=== PATIENT | female | born 1960 | race Two or more races ===

== ENCOUNTER 2020-05-14 16:20 | Outpatient (REF) | payer OTHER, SELFPAY | END 2020-05-14 16:21 | disposition home or self-care (01) | LOC: HO.LAB 16:20 | PROVIDERS: Visit Provider Internal Medicine | DX: Z20.828 Contact with and (suspected) exposure to other viral communicable diseases (principal) | CPT/HCPCS: U0003 ==

== ENCOUNTER → 2020-09-10 14:35 | Outpatient (BNVA) | payer OTHER, SELFPAY | PROVIDERS: PCP Internal Medicine; Visit Provider Advanced Practice Midwife ==

== ENCOUNTER 2020-09-11 13:20 | Outpatient (REF) | payer OTHER, SELFPAY ==
[2020-09-12 09:10] LABS: BV Int Neg Control Negative (Negative); BV Int Pos Control Positive (Positive)
== END 2020-09-11 13:21 | disposition home or self-care (01) ==
LOC: HO.LAB 13:20
PROVIDERS: Visit Provider Advanced Practice Midwife
DX: N89.8 Other specified noninflammatory disorders of vagina (principal)
CPT/HCPCS: 87480; 87510; 87660

== ENCOUNTER 2020-09-22 22:55 | Emergency (ER) | payer OTHER, SELFPAY ==
--- NOTE | ~2020-09-22 | CT_ITS ---
EXAMINATION: CT HEAD WITHOUT CONTRAST CLINICAL INFORMATION: Left arm paresthesia COMPARISON: 07/05/2018 TECHNIQUE: Contiguous axial imaging was performed from the skull base to vertex without intravenous administration of contrast. This CT examination was performed using dose optimization techniques as appropriate, variously including the following: *Automated exposure control *Adjustment of mA and/or kV according to patient size (this includes techniques or standardized protocols for targeted exams where dose is matched to indication/reason for exam; i.e. extremities or head) *Use of iterative reconstruction technique DLP: 648 mGy-cm FINDINGS: There is no evidence of acute intracranial hemorrhage or territorial infarction. No abnormal mass effect or midline shift is seen. Soliz to white matter differentiation is well preserved. No extra-axial fluid collections are identified. The ventricles are normal in size. There is no abnormal attenuation within the brain parenchyma. The osseous structures and soft tissues are normal. There is slight opacification of the left sphenoid sinus. The mastoid air cells are well-aerated. CT/CT head/brain wo con IMPRESSION: No acute intracranial pathology.
[2020-09-22 23:05] VITALS: BP 136/68; PULSE 68; RESP 20; TEMP 36.7; O2SAT 97; BMI 42.6
--- NOTE | 2020-09-23 00:36 | ED.GENADULT ---
HPI - General Adult General Chief complaint: General Medical <Marcus Ambrosio MD - Last Filed: 09/23/20 01:35> Stated complaint: Left arm numbness/Vomitng <Marcus Ambrosio MD - Last Filed: 09/23/20 01:35> Time Seen by Provider: 09/23/20 00:34 <Marcus Ambrosio MD - Last Filed: 09/23/20 01:35> Source: patient <Marcus Ambrosio MD - Last Filed: 09/23/20 01:35> Mode of arrival: ambulatory <Marcus Ambrosio MD - Last Filed: 09/23/20 01:35> Limitations: no limitations <Marcus Ambrosio MD - Last Filed: 09/23/20 01:35> History of Present Illness HPI narrative: Patient with history of anxiety depression asthma sleep apnea not using CPAP woke up just prior to arrival with left arm pain and tingling which lasted for an hour. Patient denies any chest pain no shortness of breath no headache no other motor weakness or numbness on arrival patient denies any tingling feeling. Patient denies any neck pain never had similar complaints in the past <Marcus Ambrosio MD - Last Filed: 09/23/20 01:35> Onset (ago): hour(s) (1) <Marcus Ambrosio MD - Last Filed: 09/23/20 01:35> Related Data Home medications: Home Medications Medication Instructions Recorded Confirmed lorazepam 0.5 mg tablet 0.5 mg PO DAILY PRN 07/12/20 09/10/20 pantoprazole 40 mg tablet,delayed 40 mg PO DAILY 07/12/20 09/10/20 release Previous Rx's Medication Instructions Recorded tramadol 50 mg tablet 50 mg PO BID PRN #60 tab 07/20/20 <Marcus Ambrosio MD - Last Filed: 09/23/20 01:35> Allergies/adverse reactions: Allergies Allergy/AdvReac Type Severity Reaction Status Date / Time No Known Allergies Allergy Verified 09/10/20 15:59 <Marcus Amborsio MD - Last Filed: 09/23/20 01:35> Review of Systems Review of Systems: Constitutional : No Weight loss, No Fever, No Chills ENT/Mouth : No sore throat, No Rhinorrhea Eyes: No Eye Pain, No Swelling Cardiovascular : No Chest Pain, no palpitations Respiratory : No Cough, No Sputum, no shortness of breath Gastrointestinal : no Nausea, No Vomiting, No Diarrhea, No abdominal Pain, no black stools Genitourinary : No Dysuria, No Urinary Frequency Musculoskeletal : No joint pain, No Myalgias, No Joint Swelling Skin : No Skin Lesions, No rash Neuro : No Weakness, + Numbness, No Dizziness, No Headache Psych : No Anxiety/Panic, No Depression Heme/Lymph: No Bruising, No Lymphadenopathy Endocrine : No Polyuria, No Polydipsia All other systems reviewed and are negative <Marcus Ambrosio MD - Last Filed: 09/23/20 01:35> [facility] Past Medical History Medical History: Medical History Allergic rhinitis Anxiety and depression Asthma Fibroids GERD (gastroesophageal reflux disease) History of renal calculi Hypercholesterolemia Obesity Obstructive sleep apnea Osteoarthritis Vitamin D deficiency <Marcus Ambrosio MD - Last Filed: 09/23/20 01:35> Surgical History: Surgical History H/O right knee surgery History of section History of tubal ligation <Marcus Ambrosio MD - Last Filed: 09/23/20 01:35> Family History Family History: Family History Father Cancer of kidney Hypertension Diabetes Mother Diabetes Sister Cancer of nasal cavities Sister Substance abuse Bipolar 1 disorder <Marcus Ambrosio MD - Last Filed: 09/23/20 01:35> Social History Social History: Social History Alcohol intake: former Smoking Status: Former smoker Advance Directives: No Advance Directives Information Provided: Yes <Marcus Ambrosio MD - Last Filed: 09/23/20 01:35> Physical Exam Vital Signs: Vital Signs: Last Vital Signs Temp 98.1 F 09/22/20 23:05 Pulse 68 09/22/20 23:05 Resp 20 09/22/20 23:05 BP 136/68 09/22/20 23:05 Pulse Ox 97 09/22/20 23:05 Body Mass Index 42.6 <Marcus Ambrosio MD - Last Filed: 09/23/20 01:35> Vital Signs: Last Vital Signs Temp 98.1 F 09/22/20 23:05 Pulse 68 09/22/20 23:05 Resp 20 09/22/20 23:05 BP 136/68 09/22/20 23:05 Pulse Ox 97 09/22/20 23:05 Body Mass Index 42.6 <Jannet Le MD - Last Filed: 09/23/20 03:15> Appearance: Alert. Oriented X3. No acute distress. Eyes: Pupils equal, round and reactive to light. ENT: Pharynx normal. Neck: Normal inspection. Neck supple. No midline tenderness CVS: Normal heart rate and rhythm. Pulses normal. Respiratory: No respiratory distress. Breath sounds normal. Abdomen: Soft and nontender. Bowel sounds are present, no mass palpable, no CVA tenderness Skin: Skin warm and dry. Normal skin color. Normal skin turgor. Extremities: No lower extremity edema. Neuro: Oriented X 3. No motor deficit. No sensory deficit. Tinel sign negative <Marcus Ambrosio MD - Last Filed: 09/23/20 01:35> Course Course Course Narrative: Patient re-evaluated and states that numbness in left upper extremity has almost completely resolved and otherwise has no acute complaints. Patient was discharged in stable condition. <Jannet Le MD - Last Filed: 09/23/20 03:15> Medical Decision Making MDM Narrative Medical decision making narrative: Patient with L Arm paresthesia likely from pinch nerve while sleeping at this time there is no focal deficit head CT is negative EKG is normal patient denies any chest pain will check labs <Marcus Ambrosio MD - Last Filed: 09/23/20 01:35> Lab Data Result diagrams: : 09/23/20 01:05 09/23/20 01:05 <Marcus Ambrosio MD - Last Filed: 09/23/20 01:35> Labs: Lab Results 09/23/20 09/23/20 09/23/20 Range/Units 01:05 01:05 01:05 WBC 9.5 (4.8-10.8) X10*3/uL RBC 4.09 L (4.20-5.50) X10*6/uL Hgb 12.2 (12.0-16.0) g/dl Hct 38.2 (37-47) % MCV 93.4 (80-98) fL MCH 29.8 (27.0-33.0) pg MCHC 31.9 (31.0-35.0) g/dl RDW 13.5 (11.0-16.0) % Plt Count 275 (160-400) X10*3/uL MPV 9.3 L (9.4-12.3) fL Immature Gran % (Auto) 0.2 (0.0-0.4) % Neut % (Auto) 77.1 H (45-73) % Lymph % (Auto) 13.8 L (20-40) % [place] % (Auto) 7.7 (2-11) % Eos % (Auto) 1.1 (0-4) % Baso % (Auto) 0.1 (0-2) % Lymph # (Auto) 1.3 (1.2-4.9) X10*3/uL [place] # (Auto) 0.7 (0.1-1.2) X10*3/uL Eos # (Auto) 0.1 (0.0-0.4) X10*3/uL Baso # (Auto) 0.0 (0.0-0.2) X10*3/uL Abs Immat Gran (auto) 0.02 (0.00-0.03) X10*3/uL Absolute Neuts (auto) 7.4 (2.0-8.3) X10*3/uL Absolute Nucleated RBC 0.000 (0.0-0.012) X10*3/uL Nucleated RBC % (auto) 0.0 (0.0-0.2) /100WBC Sodium 142 (135-145) mmol/L Potassium 4.3 (3.3-5.1) mmol/L Chloride 107 (96-108) mmol/L Carbon Dioxide 28 (22-29) mmol/L Anion Gap 11 L (12-20) BUN 22 H (9-16) mg/dL Creatinine 0.78 (0.5-1.4) mg/dL Estim Creat Clear Calc 79.6 Estimated GFR > 60 Random Glucose 115 (60-115) mg/dL Calcium 8.9 (8.4-10.2) mg/dL Magnesium 2.2 (1.6-2.6) mg/dL Troponin I High Sens < 3.5 (<3.5-17.0) ng/L <Marcus Ambrosio MD - Last Filed: 09/23/20 01:35> Lab Results 09/23/20 09/23/20 09/23/20 Range/Units 01:05 01:05 01:05 WBC 9.5 (4.8-10.8) X10*3/uL RBC 4.09 L (4.20-5.50) X10*6/uL Hgb 12.2 (12.0-16.0) g/dl Hct 38.2 (37-47) % MCV 93.4 (80-98) fL MCH 29.8 (27.0-33.0) pg MCHC 31.9 (31.0-35.0) g/dl RDW 13.5 (11.0-16.0) % Plt Count 275 (160-400) X10*3/uL MPV 9.3 L (9.4-12.3) fL Immature Gran % (Auto) 0.2 (0.0-0.4) % Neut % (Auto) 77.1 H (45-73) % Lymph % (Auto) 13.8 L (20-40) % [place] % (Auto) 7.7 (2-11) % Eos % (Auto) 1.1 (0-4) % Baso % (Auto) 0.1 (0-2) % Lymph # (Auto) 1.3 (1.2-4.9) X10*3/uL [place] # (Auto) 0.7 (0.1-1.2) X10*3/uL Eos # (Auto) 0.1 (0.0-0.4) X10*3/uL Baso # (Auto) 0.0 (0.0-0.2) X10*3/uL Abs Immat Gran (auto) 0.02 (0.00-0.03) X10*3/uL Absolute Neuts (auto) 7.4 (2.0-8.3) X10*3/uL Absolute Nucleated RBC 0.000 (0.0-0.012) X10*3/uL Nucleated RBC % (auto) 0.0 (0.0-0.2) /100WBC Sodium 142 (135-145) mmol/L Potassium 4.3 (3.3-5.1) mmol/L Chloride 107 (96-108) mmol/L Carbon Dioxide 28 (22-29) mmol/L Anion Gap 11 L (12-20) BUN 22 H (9-16) mg/dL Creatinine 0.78 (0.5-1.4) mg/dL Estim Creat Clear Calc 79.6 Estimated GFR > 60 Random Glucose 115 (60-115) mg/dL Calcium 8.9 (8.4-10.2) mg/dL Magnesium 2.2 (1.6-2.6) mg/dL Troponin I High Sens < 3.5 (<3.5-17.0) ng/L <Jannet Le MD - Last Filed: 09/23/20 03:15> Imaging Data CT scan - head: Attestation: I personally reviewed and interpreted this imaging study as follows: <Marcus Ambrosio MD - Last Filed: 09/23/20 01:35> Radiologist's impression: No acute ischemia <Marcus Ambrosio MD - Last Filed: 09/23/20 01:35> ECG Data Attestation: I personally reviewed and interpreted this ECG as follows: <Marcus Ambrosio MD - Last Filed: 09/23/20 01:35> Interpretation: Normal sinus rhythm heart rate 65 beats per minute normal axis normal intervals no acute ST T wave changes impression normal EKG <Marcus Ambrosio MD - Last Filed: 09/23/20 01:35> Discharge Plan Discharge Clinical Impression: Paresthesia and pain of left extremity <Marcus Ambrosio MD - Last Filed: 09/23/20 01:35> Patient Disposition: Home, Self-Care <Marcus Ambrosio MD - Last Filed: 09/23/20 01:35> Instructions: Paresthesia (ED) <Marcus Ambrosio MD - Last Filed: 09/23/20 01:35> Additional Instructions: Continue medications and follow up with your PCP if any left arm pain or chest pain <Marcus Ambrosio MD - Last Filed: 09/23/20 01:35> Prescriptions: No Action tramadol 50 mg tablet 50 mg PO BID PRN (Reason: pain) Qty: 60 RF: 1 pantoprazole [Protonix] 40 mg tablet,delayed release (DR/EC) 40 mg PO DAILY RF: 0 lorazepam [Ativan] 0.5 mg tablet 0.5 mg PO DAILY PRNRF: 0 <Marcus Ambrosio MD - Last Filed: 09/23/20 01:35>
--- NOTE | 2020-09-23 00:40 | ECG_ITS ---
Test Reason : NUMBNESS Blood Pressure : / mmHG Vent. Rate : 065 BPM Atrial Rate : 065 BPM P-R Int : 132 ms QRS Dur : 078 ms QT Int : 410 ms P-R-T Axes : 046 002 007 degrees QTc Int : 426 ms Normal sinus rhythm Normal ECG When compared with ECG of 05-JUL-2018 11:46, No significant change was found Referred By: Marcus Ambrosio Electronically Signed By:Remigio Julien
[2020-09-23 01:11] LABS: Basophils Percent Auto 0.1 % (0-2); Eosinophils Absolute Auto 0.1 X10*3/uL (0.0-0.4); Eosinophils Percent Auto 1.1 % (0-4); Hematocrit 38.2 % (37-47); Hemoglobin 12.2 g/dl (12.0-16.0); Imm Gran Abs Auto 0.02 X10*3/uL (0.00-0.03); Imm Gran Pct Auto 0.2 % (0.0-0.4); Lymphocytes Absolute Auto 1.3 X10*3/uL (1.2-4.9); Lymphocytes Percent Auto 13.8 % (20-40); MANUAL DIFF FLAG NO; Mean Corpuscular HGB Conc 31.9 g/dl (31.0-35.0); Mean Corpuscular Hemoglobin 29.8 pg (27.0-33.0); Mean Corpuscular Volume 93.4 fL (80-98); Mean Platelet Volume 9.3 fL (9.4-12.3); Monocytes Absolute Auto 0.7 X10*3/uL (0.1-1.2); Monocytes Percent Auto 7.7 % (2-11); Neutrophils Absolute Auto 7.4 X10*3/uL (2.0-8.3); Neutrophils Percent Auto 77.1 % (45-73); Platelet Count 275 X10*3/uL (160-400); Red Blood Count 4.09 X10*6/uL (4.20-5.50); Red Cell Distribution Width 13.5 % (11.0-16.0); White Blood Count 9.5 X10*3/uL (4.8-10.8)
[2020-09-23 01:41] LABS: Anion Gap 11 (12-20); Blood Urea Nitrogen 22 mg/dL (9-16); Calcium 8.9 mg/dL (8.4-10.2); Carbon Dioxide 28 mmol/L (22-29); Chloride 107 mmol/L (96-108); Creatinine Clr Calc Pharmacy 79.6; Estimated Glomerular Filt Rate > 60; Glucose Random 115 mg/dL (60-115); Magnesium 2.2 mg/dL (1.6-2.6); Potassium 4.3 mmol/L (3.3-5.1); Sodium 142 mmol/L (135-145)
[2020-09-23 01:45] LABS: Troponin-I High Sensitivity < 3.5 ng/L (<3.5-17.0)
== END 2020-09-23 03:29 | disposition home or self-care (01) ==
PROVIDERS: Emergency Provider Internal Medicine; PCP Internal Medicine
DX: M79.602 Pain in left arm (principal); R20.2 Paresthesia of skin; J45.909 Unspecified asthma, uncomplicated; Z79.899 Other long term (current) drug therapy; Z87.891 Personal history of nicotine dependence
CPT/HCPCS: 36415; 70450; 80048; 83735; 84484; 85025; 93005; 99284

== ENCOUNTER 2021-02-22 22:41 | Emergency (ER) | payer OTHER, SELFPAY ==
[2021-02-22 22:52] VITALS: BP 144/75; PULSE 82; RESP 18; TEMP 36.7; O2SAT 98; BMI 43.0
[2021-02-22 23:19] LABS: Glucose Urine UA NEG (NEG); Leukocyte Esterase Urine NEG (NEG); Nitrite Urine NEG (NEG); Specific Gravity - Urine 1.015 (1.005-1.025); UACC Culture Trigger NO; Urine Blood 3+ (NEG); Urine Ketones NEG (NEG); Urine Protein NEG (NEG-TRACE)
[2021-02-22 23:21] LABS: Appearance Urine CLEAR; Color Urine STRAW
[2021-02-22 23:39] LABS: Amorphous Sediment Urine TRACE /LPF; Mucus Urine 1+ /LPF; RBC Urine 50-75 /HPF (0); Squamous Epithelial Cell Urine TRACE /LPF; WBC Urine 0-2 /HPF (0-4)
[2021-02-23 03:50] LABS: Basophils Percent Auto 0.2 % (0-2); Eosinophils Absolute Auto 0.2 X10*3/uL (0.0-0.4); Eosinophils Percent Auto 2.4 % (0-4); Hematocrit 38.5 % (37-47); Hemoglobin 12.3 g/dl (12.0-16.0); Imm Gran Abs Auto 0.02 X10*3/uL (0.00-0.03); Imm Gran Pct Auto 0.2 % (0.0-0.4); Lymphocytes Percent Auto 20.9 % (20-40); MANUAL DIFF FLAG NO; Mean Corpuscular HGB Conc 31.9 g/dl (31.0-35.0); Mean Corpuscular Hemoglobin 29.1 pg (27.0-33.0); Mean Platelet Volume 9.5 fL (9.4-12.3); Monocytes Percent Auto 10.6 % (2-11); Neutrophils Absolute Auto 6.3 X10*3/uL (2.0-8.3); Neutrophils Percent Auto 65.7 % (45-73); Platelet Count 287 X10*3/uL (160-400); Red Blood Count 4.23 X10*6/uL (4.20-5.50); Red Cell Distribution Width 13.2 % (11.0-16.0); White Blood Count 9.6 X10*3/uL (4.8-10.8)
[2021-02-23] MEDS: 0.9 % Sodium Chloride 1,000 ML 999 ML IV (03:54)
--- NOTE | 2021-02-23 04:08 | ED_ITS ---
HPI - Female Genitourinary General Chief complaint: Urogenital-Female Stated complaint: blood in urine Time Seen by Provider: 02/23/21 04:08 Source: patient Mode of arrival: ambulatory History of Present Illness HPI Narrative: 60-year-old female with history of GERD who presents with reported right lower back discomfort that she thought may have just been related to her work but then later on this evening noted that she had blood in her urine. She denies any associated fever, chills, nausea, vomiting, abdominal pain or diarrhea. She states that does paris somewhat on urination but not quite similar to UTI. She reports she has had renal stones in the past but states that it feels different. Related Data Home Medications Medication Instructions Recorded Confirmed lorazepam 0.5 mg tablet (Ativan) 0.5 mg PO DAILY PRN 07/12/20 09/10/20 pantoprazole 40 mg tablet,delayed 40 mg PO DAILY 07/12/20 09/10/20 release (Protonix) Previous Rx's Medication Instructions Recorded tramadol 50 mg tablet 50 mg PO BID PRN #60 tab 07/20/20 Allergies Allergy/AdvReac Type Severity Reaction Status Date / Time No Known Allergies Allergy Verified 09/10/20 15:59 Review of Systems Review of Systems: Pertinent positives and negatives as stated in HPI 10 point review of systems is otherwise negative. [facility] Past Medical History Source: nursing notes reviewed Medical History Allergic rhinitis Anxiety and depression Asthma Fibroids GERD (gastroesophageal reflux disease) History of renal calculi Hypercholesterolemia Medullary sponge kidney Obesity Obstructive sleep apnea Osteoarthritis Vitamin D deficiency Surgical History H/O right knee surgery History of section History of tubal ligation Family History Family History Father Cancer of kidney Hypertension Diabetes Mother Diabetes Sister Cancer of nasal cavities Sister Substance abuse Bipolar 1 disorder Social History Social History Alcohol intake: former Advance Directives: No Advance Directives Information Provided: No Patient : No Physical Exam Vital Signs: Vital Signs: Last Vital Signs Temp 98.1 F 02/22/21 22:52 Pulse 61 02/23/21 06:46 Resp 16 02/23/21 06:46 BP 157/73 H 02/23/21 06:46 Pulse Ox 97 02/23/21 06:46 Body Mass Index 43.0 VITAL SIGNS: Reviewed. GENERAL: Well developed, well nourished, in no acute distress. HEAD: Normocephalic/atraumatic EYES: PERRLA, EOMI OROPHARYNX: no oral lesions noted, posterior pharynx clear LUNGS: Normal breath sounds. No adventitious sounds or accessory muscle use. SpO2<98> CARDIOVASCULAR: Regular rate and rhythm without noted murmurs, no JVD or lower extremity edema. ABDOMEN: Soft, non-tender, non-distended with bowel sounds, no CVA tenderness SKIN: Inspection of the skin reveals no rashes NEUROLOGIC: Alert and oriented x 4. Strength and sensation to light touch were grossly intact x 4. Course Course Course Narrative: 60-year-old female with history and clinical presentation suggestive of possible sequela of underlying medullary sponge kidney, but will rule out renal colic, UTI, and doubt gallbladder pathology given history and clinical exam of the abdomen. Review of all investigations without acute findings other than evidence of blood in the urine with rbc's at 50-75. Patient states that she typically has microscopic hematuria but this was the 1st time that she had been able to see it with her own eyes. Patient was encouraged to increase her fluid hydration and will be discharged in stable condition with instructions to follow up with her urologist. MDM - Female Genitourinary Lab Data Result diagrams: 02/23/21 03:44 02/23/21 05:42 Labs: Lab Results 02/22/21 02/23/21 02/23/21 Range/Units 22:58 03:44 05:42 WBC 9.6 (4.8-10.8) X10*3/uL RBC 4.23 (4.20-5.50) X10*6/uL Hgb 12.3 (12.0-16.0) g/dl Hct 38.5 (37-47) % MCV 91.0 (80-98) fL MCH 29.1 (27.0-33.0) pg MCHC 31.9 (31.0-35.0) g/dl RDW 13.2 (11.0-16.0) % Plt Count 287 (160-400) X10*3/uL MPV 9.5 (9.4-12.3) fL Immature Gran % (Auto) 0.2 (0.0-0.4) % Neut % (Auto) 65.7 (45-73) % Lymph % (Auto) 20.9 (20-40) % [place] % (Auto) 10.6 (2-11) % Eos % (Auto) 2.4 (0-4) % Baso % (Auto) 0.2 (0-2) % Lymph # (Auto) 2.0 (1.2-4.9) X10*3/uL [place] # (Auto) 1.0 (0.1-1.2) X10*3/uL Eos # (Auto) 0.2 (0.0-0.4) X10*3/uL Baso # (Auto) 0.0 (0.0-0.2) X10*3/uL Abs Immat Gran (auto) 0.02 (0.00-0.03) X10*3/uL Absolute Neuts (auto) 6.3 (2.0-8.3) X10*3/uL Absolute Nucleated RBC 0.000 (0.0-0.012) X10*3/uL Nucleated RBC % (auto) 0.0 (0.0-0.2) /100WBC Sodium 141 (135-145) mmol/L Potassium 4.1 (3.3-5.1) mmol/L Chloride 107 (96-108) mmol/L Carbon Dioxide 26 (22-29) mmol/L Anion Gap 12 (12-20) BUN 22 H (9-16) mg/dL Creatinine 0.67 (0.5-1.4) mg/dL Estim Creat Clear Calc 93.2 Estimated GFR > 60 Random Glucose 98 (60-115) mg/dL Calcium 8.6 (8.4-10.2) mg/dL Total Bilirubin 0.2 (0.0-1.0) mg/dL AST 16 (5-31) U/L ALT 16 (0-31) U/L Alkaline Phosphatase 72 (39-117) U/L Total Protein 6.7 (6.5-8.0) g/dL Albumin 3.8 (3.5-5.0) g/dL Urine Color STRAW Urine Appearance CLEAR Urine pH 6.0 (5.0-8.0) Ur Specific [place] 1.015 (1.005-1.025) Urine Protein NEG (NEG-TRACE) MG/DL Urine Glucose (UA) NEG (NEG) MG/DL Urine Ketones NEG (NEG) MG/DL Urine Blood 3+ H (NEG) Urine Nitrite NEG (NEG) Ur Leukocyte Esterase NEG (NEG) Urine RBC 50-75 H (0) /HPF Urine WBC 0-2 (0-4) /HPF Ur Squamous Epith Cells TRACE /LPF Amorphous Sediment TRACE /LPF Urine Bacteria NONE /LPF Urine Mucus 1+ /LPF Urine Yeast TRACE /HPF Discharge Plan Discharge Clinical Impression: Hematuria Patient Disposition: Home, Self-Care Instructions: Hematuria (ED) Additional Instructions: 1. Resume all home medications as prescribed. 2. Increase fluid hydration especially with water. 3. Please follow-up with your urologist on Thursday morning for re-evaluation and further outpatient management. Return to the ER for acute worsening of your symptoms. Prescriptions: No Action tramadol 50 mg tablet 50 mg PO BID PRN (Reason: pain) Qty: 60 RF: 1 pantoprazole [Protonix] 40 mg tablet,delayed release (DR/EC) 40 mg PO DAILY RF: 0 lorazepam [Ativan] 0.5 mg tablet 0.5 mg PO DAILY PRNRF: 0 Referrals: Po,Selvin Garnett MD [Primary Care Provider] - 2 days
[2021-02-23 06:14] LABS: Alanine Aminotransferase 16 U/L (0-31); Albumin Level 3.8 g/dL (3.5-5.0); Alkaline Phosphatase 72 U/L (39-117); Anion Gap 12 (12-20); Aspartate Amino Transferase 16 U/L (5-31); Bilirubin Total 0.2 mg/dL (0.0-1.0); Blood Urea Nitrogen 22 mg/dL (9-16); Calcium 8.6 mg/dL (8.4-10.2); Carbon Dioxide 26 mmol/L (22-29); Chloride 107 mmol/L (96-108); Creatinine Clr Calc Pharmacy 93.2; Estimated Glomerular Filt Rate > 60; Glucose Random 98 mg/dL (60-115); Potassium 4.1 mmol/L (3.3-5.1); Sodium 141 mmol/L (135-145); Total Protein 6.7 g/dL (6.5-8.0)
[2021-02-23 06:46] VITALS: BP 157/73; PULSE 61; RESP 16; O2SAT 97
== END 2021-02-23 07:29 | disposition home or self-care (01) ==
PROVIDERS: Emergency Provider Student in an Organized Health Care Education/Training Program; PCP Internal Medicine
DX: R31.9 Hematuria, unspecified (principal); M54.5 Low back pain; Z87.442 Personal history of urinary calculi
CPT/HCPCS: 36415; 80053; 81001; 85025; 96360; 99284

== ENCOUNTER 2021-02-26 10:34 | Outpatient (REF) | payer OTHER, SELFPAY ==
[2021-02-26 11:01] LABS: COVID-19 Test Negative (Negative)
== END 2021-02-26 10:35 | disposition home or self-care (01) ==
LOC: HO.LAB 10:34
PROVIDERS: PCP Internal Medicine; Visit Provider Internal Medicine
DX: Z20.822 Contact with and (suspected) exposure to COVID-19 (principal)
CPT/HCPCS: 36415; 87635; C9803

== ENCOUNTER 2021-03-14 16:53 | Emergency (ER) | payer OTHER, SELFPAY ==
--- NOTE | ~2021-03-14 | CT_ITS ---
EXAMINATION: CT ABDOMEN AND PELVIS WITHOUT CONTRAST CLINICAL INFORMATION: Right flank pain. COMPARISON: 09/25/2014 TECHNIQUE: Multidetector volumetric imaging was performed from the superior aspect of the liver through the pubic symphysis. Sagittal and coronal reformatted images were obtained on the technologist's workstation. This CT examination was performed using dose optimization techniques as appropriate, variously including the following: *Automated exposure control *Adjustment of mA and/or kV according to patient size (this includes techniques or standardized protocols for targeted exams where dose is matched to indication/reason for exam; i.e. extremities or head) *Use of iterative reconstruction technique DLP: 758 mGy-cm FINDINGS: LUNG BASES: The visualized lung bases are unremarkable. LIVER, GALLBLADDER, AND BILIARY TREE: The liver is normal in size, shape, and attenuation. No focal hepatic lesion or biliary ductal dilatation is present. The gallbladder is unremarkable with no evidence of radiopaque gallstones, gallbladder wall thickening, or obvious pericholecystic inflammatory changes. PANCREAS: Unremarkable. SPLEEN: Unremarkable. ADRENAL GLANDS: Unremarkable. KIDNEYS AND URETERS: The kidneys are normal in size, shape, and attenuation. There is mild right hydroureteronephrosis. There is a 0.3 cm calculus at the right ureterovesicular junction. BLADDER: Unremarkable. GASTROINTESTINAL TRACT: Stomach is unremarkable. Normal caliber small bowel. There is no obstruction. Normal appendix. No colonic wall thickening or inflammatory change. Scattered diverticulosis without diverticulitis. ABDOMINAL WALL: No significant hernia is appreciated. LYMPH NODES: Normal. VASCULAR: Unremarkable. PELVIC VISCERA: The uterus and adnexa are unremarkable. OSSEOUS STRUCTURES: No acute or suspicious osseous abnormality. Mild degenerative changes throughout the spine. Mild degenerative changes in the hips. CT/CT abdomen pelvis wo con IMPRESSION: Mild right hydroureteronephrosis with a 0.3 cm calculus at the right ureterovesicular junction.
[2021-03-14 17:19] VITALS: BP 151/77; PULSE 62; RESP 18; TEMP 36.8; O2SAT 99; BMI 42.8
[2021-03-14 18:50] VITALS: BP 142/71; PULSE 58; RESP 16; TEMP 36.5; O2SAT 100
--- NOTE | 2021-03-14 19:14 | ED_ITS ---
HPI - General Adult General Chief complaint: General Medical Stated complaint: kidney stones Time Seen by Provider: 03/14/21 19:07 Source: patient Mode of arrival: ambulatory Limitations: no limitations History of Present Illness HPI narrative: 60-year-old female with history of asthma, hypercholesteremia, obesity, GERD, anxiety and depression, obstructive sleep apnea is here today for right flank pain. Patient is actively vomiting describes the pain as sharp, stabbing like pain. Denies any other GI symptoms. Patient denies any urinary frequency, blood, burning. Patient is followed by Nephrology for her kidney disease. Onset (ago): hour(s) Location: back (Right flank) Radiation: non-radiation Severity: severe Severity scale (1-10): 10 Quality: stabbing Pain Consistency: intermittent Relieving factors: none Related Data Home Medications Medication Instructions Recorded Confirmed lorazepam 0.5 mg tablet (Ativan) 0.5 mg PO DAILY PRN 07/12/20 02/25/21 pantoprazole 40 mg tablet,delayed 40 mg PO DAILY 07/12/20 02/25/21 release (Protonix) Previous Rx's Medication Instructions Recorded tramadol 50 mg tablet 50 mg PO BID PRN #60 tab 07/20/20 azithromycin 250 mg tablet See Rx Instructions PO .COMPLEX #6 02/25/21 tab ondansetron 4 mg disintegrating 4 mg PO Q8H PRN #7 tab 03/14/21 tablet oxycodone 5 mg tablet 5 mg PO Q4-6H PRN #5 tab 03/14/21 prednisone 20 mg tablet 20 mg PO DAILY #4 tab 03/14/21 tamsulosin 0.4 mg capsule (Flomax) 0.4 mg PO BEDTIME #14 cap 03/14/21 Allergies Allergy/AdvReac Type Severity Reaction Status Date / Time No Known Allergies Allergy Verified 02/25/21 10:47 Review of Systems Review of Systems: Constitutional : No Weight loss, No Fever, No Chills, No Night Sweats, No Fatigue, No Malaise ENT/Mouth : No Hearing loss, No Ear Pain, No Nasal Congestion, No Sinus Pain, No Hoarseness, No sore throat, No Rhinorrhea, No Swallowing Difficulty Eyes: No Eye Pain, No Swelling, No Redness, No Foreign Body, No Discharge, No Vision Changes Cardiovascular : No Chest Pain, No SOB, No Dyspnea on Exertion, No Orthopnea, No Edema, No Palpitations Respiratory : No Cough, No Sputum, No Wheezing, No Smoke Exposure, No Dyspnea Gastrointestinal : Nausea, Vomiting, No Diarrhea, No Constipation, No abdominal Pain, No Hematochezia, No Melena, right flank pain Genitourinary : no irregular bleeding, No Dysuria, No Urinary Frequency, No Hematuria, No Urinary Incontinence, No Urgency, No Flank Pain, No Urinary Flow Changes, No Hesitancy Musculoskeletal : No joint pain, No Myalgias, No Joint Swelling Skin : No Skin Lesions, No rash Neuro : No Weakness, No Numbness, No Paresthesias, No Loss of Consciousness, No Dizziness, No Headache Psych : No Anxiety/Panic, No Depression, No SI/HI/AH/VH, No Social Issues, Heme/Lymph: No Bruising, No Bleeding,No Lymphadenopathy Endocrine : No Polyuria, No Polydipsia, No Temperature Intolerance Yes all other systems are reviewed and are negative [facility] Past Medical History Medical History Allergic rhinitis Anxiety and depression Asthma Fibroids GERD (gastroesophageal reflux disease) History of renal calculi Hypercholesterolemia Medullary sponge kidney Obesity Obstructive sleep apnea Osteoarthritis Vitamin D deficiency Surgical History H/O right knee surgery History of section History of tubal ligation Family History Family History Father Cancer of kidney Hypertension Diabetes Mother Diabetes Sister Cancer of nasal cavities Sister Substance abuse Bipolar 1 disorder Social History Social History Alcohol intake: former Patient Tobacco Use Status: Never used Tobacco e-Cigarette/Vaping Use: Never Used Second Hand Smoke Exposure: No Advance Directives: No Advance Directives Information Provided: Yes Patient : No Physical Exam Vital Signs: Vital Signs: Last Vital Signs Temp 97.6 F 03/14/21 20:00 Pulse 57 03/14/21 20:00 Resp 15 03/14/21 20:00 BP 126/65 03/14/21 20:00 Pulse Ox 98 03/14/21 20:00 Body Mass Index 42.8 Const: General: healthy appearing, no acute distress and well developed Nutritional Appearance: well nourished Orientation/consciousness: patient oriented x3 HENMT: Head: Yes normal to inspection, Yes normocephalic and Yes atraumatic Ears: hearing grossly normal bilaterally General nose exam: Normal external nose present Face and sinus: Yes normal facial exam Mouth: Normal oral and palatal mucosa present Throat: Yes posterior oropharynx normal Eyes: General: appearance normal, both eyes and all related structures Neck: Neck: Yes normal visual inspection, Yes full ROM and Yes trachea midline Thyroid: Thyroid normal Resp: Auscultation: clear to auscultation bilaterally Cardio: Rate: regular rate Rhythm: regular rhythm GI: Inspection: Yes normal to inspection, No distended and Yes obesity Palpation (GI): Soft to palpation, not firm, nontender, no guarding and No hepatosplenomegaly present Auscultation: normal bowel sounds : General: Yes CVA tenderness (Right) Back/Spine/Pelvis: Back: CVA tenderness (Right) Skin: General skin exam: elasticity normal, turgor normal and dry skin Neuro: General: patient oriented x3 Course Course Course Narrative: 60-year-old female with past medical history of asthma, hypercholesteremia, obesity, GERD, obstructive sleep apnea and osteoarthritis and history of kidney stone in the past. Patient denies urinary frequency or burning. Patient is nauseous and actively vomiting. Will medicate her with Zofran will give her fluids, Urinalysis and abdominal CT to rule out kidney stone Reevaluation(s) Reevaluation #1: CT scan showed mild right hydroureteronephrosis with a 0.3 cm calculus at the right ureteral vesicular junction. Will medicate patient with Flomax. Will give her one dose of Flomax and prednisone tonight. Patient can follow-up with her regulatory agency director. I will also send her to urologist. Medical Decision Making Lab Data Result diagrams: 03/14/21 19:18 03/14/21 19:18 Labs: Lab Results 03/14/21 03/14/21 03/14/21 Range/Units 19:18 19:18 20:20 WBC 11.2 H (4.8-10.8) X10*3/uL RBC 4.15 L (4.20-5.50) X10*6/uL Hgb 12.2 (12.0-16.0) g/dl Hct 37.8 (37-47) % MCV 91.1 (80-98) fL MCH 29.4 (27.0-33.0) pg MCHC 32.3 (31.0-35.0) g/dl RDW 13.4 (11.0-16.0) % Plt Count 277 (160-400) X10*3/uL MPV 9.4 (9.4-12.3) fL Immature Gran % (Auto) 0.3 (0.0-0.4) % Neut % (Auto) 80.6 H (45-73) % Lymph % (Auto) 11.0 L (20-40) % [place] % (Auto) 7.1 (2-11) % Eos % (Auto) 0.8 (0-4) % Baso % (Auto) 0.2 (0-2) % Lymph # (Auto) 1.2 (1.2-4.9) X10*3/uL [place] # (Auto) 0.8 (0.1-1.2) X10*3/uL Eos # (Auto) 0.1 (0.0-0.4) X10*3/uL Baso # (Auto) 0.0 (0.0-0.2) X10*3/uL Abs Immat Gran (auto) 0.03 (0.00-0.03) X10*3/uL Absolute Neuts (auto) 9.0 H (2.0-8.3) X10*3/uL Absolute Nucleated RBC 0.000 (0.0-0.012) X10*3/uL Nucleated RBC % (auto) 0.0 (0.0-0.2) /100WBC Sodium 139 (135-145) mmol/L Potassium 3.8 (3.3-5.1) mmol/L Chloride 105 (96-108) mmol/L Carbon Dioxide 28 (22-29) mmol/L Anion Gap 10 L (12-20) BUN 17 H (9-16) mg/dL Creatinine 0.65 (0.5-1.4) mg/dL Estim Creat Clear Calc 95.9 Estimated GFR > 60 Random Glucose 99 (60-115) mg/dL Calcium 8.9 (8.4-10.2) mg/dL Urine Color YELLOW Urine Appearance HAZY Urine pH 6.0 (5.0-8.0) Ur Specific [place] 1.020 (1.005-1.025) Urine Protein NEG (NEG-TRACE) MG/DL Urine Glucose (UA) NEG (NEG) MG/DL Urine Ketones 5 (NEG) MG/DL Urine Blood 3+ H (NEG) Urine Nitrite NEG (NEG) Ur Leukocyte Esterase NEG (NEG) Urine RBC 5-9 H (0) /HPF Urine WBC 0 (0-4) /HPF Ur Squamous Epith Cells 2+ /LPF Urine Bacteria 2+ /LPF Imaging Data CT scan - abdomen: Radiologist's impression: FINDINGS: LUNG BASES: The visualized lung bases are unremarkable.? LIVER, GALLBLADDER, AND BILIARY TREE: The liver is normal in size, shape, and attenuation. No focal hepatic lesion or biliary ductal dilatation is present. The gallbladder is unremarkable with no evidence of radiopaque gallstones, gallbladder wall thickening, or obvious pericholecystic inflammatory changes.? PANCREAS: Unremarkable.? SPLEEN: Unremarkable.? ADRENAL GLANDS: Unremarkable.? KIDNEYS AND URETERS: The kidneys are normal in size, shape, and attenuation. There is mild right hydroureteronephrosis. There is a 0.3 cm calculus at the right ureterovesicular junction. BLADDER: Unremarkable.? GASTROINTESTINAL TRACT: Stomach is unremarkable. Normal caliber small bowel. There is no obstruction. Normal appendix. No colonic wall thickening or inflammatory change. Scattered diverticulosis without diverticulitis.? ABDOMINAL WALL: No significant hernia is appreciated.? LYMPH NODES: Normal. VASCULAR: Unremarkable. PELVIC VISCERA: The uterus and adnexa are unremarkable.? OSSEOUS STRUCTURES: No acute or suspicious osseous abnormality. Mild degenerative changes throughout the spine. Mild degenerative changes in the hips.? Discharge Plan Discharge Clinical Impression: Kidney stone on right side Patient Disposition: Home, Self-Care Instructions: Kidney Stones (ED), Flank Pain (ED) Additional Instructions: You were seen here today for right flank pain. You have a kidney stone that needs to past. You should follow-up with your regulatory agency director as well as urologist. You were given medications to help you passed the stone and help you with the swelling. You will be sent home with pain medication, medication for nausea as well as medication to help you passed the stone and prednisone for additional 4 days. You may return to emergency department if your symptoms will get worse or if you experience any additional concerning symptoms Prescriptions: New oxycodone 5 mg tablet 5 mg PO Q4-6H PRN (Reason: pain) Qty: 5 RF: 0 tamsulosin [Flomax] 0.4 mg capsule 0.4 mg PO BEDTIME Qty: 14 RF: 0 prednisone 20 mg tablet 20 mg PO DAILY Qty: 4 RF: 0 ondansetron 4 mg tablet,disintegrating 4 mg PO Q8H PRN (Reason: nausea and vomiting) Qty: 7 RF: 0 No Action tramadol 50 mg tablet 50 mg PO BID PRN (Reason: pain) Qty: 60 RF: 1 azithromycin 250 mg tablet See Rx Instructions PO .COMPLEX Qty: 6 RF: 0 pantoprazole [Protonix] 40 mg tablet,delayed release (DR/EC) 40 mg PO DAILY RF: 0 lorazepam [Ativan] 0.5 mg tablet 0.5 mg PO DAILY PRNRF: 0 Referrals: Sen Vasquez MD [Physician] - 2 days Stand Alone Forms: Work/School Release
--- NOTE | 2021-03-14 19:19 | PC.NURSE ---
IV established, labs obtained. UTO urine sample. Pt off to CT on hospital bed. Plan for medication admin upon return.
[2021-03-14 19:23] LABS: MANUAL DIFF FLAG NO
[2021-03-14] MEDS: Morphine Sulfate 2 MG/ML CARTRIDGE IVPUSH (19:25)
[2021-03-14] MEDS: ondansetron HCL 4 MG/2 ML VIAL IVPUSH (19:25)
[2021-03-14] MEDS: 0.9 % Sodium Chloride 1,000 ML 999 ML IV (19:25)
--- NOTE | 2021-03-14 19:26 | PC.NURSE ---
Pt returns from CT. Medicated per SEP.
[2021-03-14 19:37] LABS: Anion Gap 10 (12-20); Blood Urea Nitrogen 17 mg/dL (9-16); Calcium 8.9 mg/dL (8.4-10.2); Carbon Dioxide 28 mmol/L (22-29); Chloride 105 mmol/L (96-108); Creatinine Clr Calc Pharmacy 95.9; Estimated Glomerular Filt Rate > 60; Glucose Random 99 mg/dL (60-115); Potassium 3.8 mmol/L (3.3-5.1); Sodium 139 mmol/L (135-145)
[2021-03-14 19:46] LABS: Basophils Percent Auto 0.2 % (0-2); Eosinophils Absolute Auto 0.1 X10*3/uL (0.0-0.4); Eosinophils Percent Auto 0.8 % (0-4); Hematocrit 37.8 % (37-47); Hemoglobin 12.2 g/dl (12.0-16.0); Imm Gran Abs Auto 0.03 X10*3/uL (0.00-0.03); Imm Gran Pct Auto 0.3 % (0.0-0.4); Lymphocytes Absolute Auto 1.2 X10*3/uL (1.2-4.9); Mean Corpuscular HGB Conc 32.3 g/dl (31.0-35.0); Mean Corpuscular Hemoglobin 29.4 pg (27.0-33.0); Mean Corpuscular Volume 91.1 fL (80-98); Mean Platelet Volume 9.4 fL (9.4-12.3); Monocytes Absolute Auto 0.8 X10*3/uL (0.1-1.2); Monocytes Percent Auto 7.1 % (2-11); Neutrophils Percent Auto 80.6 % (45-73); Platelet Count 277 X10*3/uL (160-400); Red Blood Count 4.15 X10*6/uL (4.20-5.50); Red Cell Distribution Width 13.4 % (11.0-16.0); White Blood Count 11.2 X10*3/uL (4.8-10.8)
[2021-03-14 20:00] VITALS: BP 126/65; PULSE 57; RESP 15; TEMP 36.4; O2SAT 98
--- NOTE | 2021-03-14 20:20 | PC.NURSE ---
UA obtained and sent.
[2021-03-14 20:28] LABS: Glucose Urine UA NEG (NEG); Leukocyte Esterase Urine NEG (NEG); Nitrite Urine NEG (NEG); UACC Culture Trigger NO; Urine Blood 3+ (NEG); Urine Ketones 5 MG/DL (NEG); Urine Protein NEG (NEG-TRACE)
[2021-03-14 20:29] LABS: Appearance Urine HAZY; Color Urine YELLOW
[2021-03-14 20:35] LABS: Bacteria Urine 2+ /LPF; Squamous Epithelial Cell Urine 2+ /LPF; WBC Urine 0 /HPF (0-4)
[2021-03-14] MEDS: Tamsulosin HCL 0.4 MG CAPSULE PO (21:22)
[2021-03-14] MEDS: predniSONE 20 MG TABLET PO (21:22)
--- NOTE | 2021-03-14 21:30 | PC.NURSE ---
Medicated per MAR.
[2021-03-14 21:38] VITALS: BP 127/60; PULSE 62; RESP 16; O2SAT 98
== END 2021-03-14 21:50 | disposition home or self-care (01) ==
PROVIDERS: Nurse Practitioner Family; Emergency Provider Emergency Medicine Emergency Medical Services; PCP Internal Medicine
DX: N20.0 Calculus of kidney (principal); R10.9 Unspecified abdominal pain; Z79.899 Other long term (current) drug therapy
CPT/HCPCS: 36415; 74176; 80048; 81001; 85025; 96361; 96374; 96375; 99284; J2270; J2405

== ENCOUNTER → 2021-04-16 11:23 | Outpatient (BNVA) | payer OTHER, SELFPAY | PROVIDERS: PCP Internal Medicine; Visit Provider Urology ==

== ENCOUNTER 2021-10-08 16:20 | Outpatient (REF) | payer OTHER, SELFPAY ==
--- NOTE | ~2021-10-08 | US_ITS ---
EXAMINATION: US RETROPERITONEAL LIMITED (RENAL ONLY) CLINICAL INFORMATION: Medullary cystic kidney. COMPARISON: CT abdomen and pelvis 03/14/2021. X-ray KUB 12/23/2017 and 12/17/2016. Renal ultrasound 12/17/2016. Ultrasound abdomen complete 11/21/2014. TECHNIQUE: Real-time imaging of the kidneys. FINDINGS: RIGHT KIDNEY: 11.8 x 4.6 x 5.5 cm (SAG x AP x TRV). The kidney is normal in size, contour, and echogenicity. Renal cortical thickness is normal. No calculi or focal parenchymal lesions. No hydronephrosis.There is mild fullness in the upper pole. LEFT KIDNEY: 12.2 x 5.0 x 6.1 cm (SAG x AP x TRV). The kidney is normal in size, contour, and echogenicity. Renal cortical thickness is normal. No calculi or focal parenchymal lesions. No hydronephrosis. There is a tiny anechoic area in the peripelvic region lower pole, question small cyst or calyceal diverticulum. US/US renal BI IMPRESSION: Mild fullness of upper pole right kidney. No obstructive etiology seen. Lower pole peripelvic tiny cysts. A small radiopaque calculus seen in the right UVJ on the previous CT abdomen exam 03/14/2021.
== END 2021-10-08 16:21 | disposition home or self-care (01) ==
LOC: HO.US 16:20
PROVIDERS: Visit Provider Urology
DX: Q61.5 Medullary cystic kidney (principal)
CPT/HCPCS: 76775

== ENCOUNTER → 2021-10-11 14:45 | Outpatient (BNVA) | payer OTHER, SELFPAY | PROVIDERS: PCP Internal Medicine; Visit Provider Urology | DX: Z13.89 Encounter for screening for other disorder (principal) ==

== ENCOUNTER 2022-03-24 15:55 | Outpatient (REF) | payer OTHER, SELFPAY ==
--- NOTE | ~2022-03-24 | US_ITS ---
EXAMINATION: US RETROPERITONEAL LIMITED (RENAL ONLY) CLINICAL INFORMATION: Medullary cystic kidney. COMPARISON: Renal ultrasound 10/08/2021, CT abdomen and pelvis 03/14/2021, x-ray KUB 12/23/2017, renal ultrasound 12/17/2016. TECHNIQUE: Real-time imaging of the kidneys. FINDINGS: RIGHT KIDNEY: 11.9 x 4.7 x 5.9 cm (SAG x AP x TRV). The kidney is normal in size and contour. Renal cortical thickness is normal. No renal calculi or hydronephrosis. There is a peripelvic cyst versus caliectasis in the upper pole measuring 2.0 x 1.2 x 1.9 cm. LEFT KIDNEY: 11.2 x 5.0 x 5.9 cm (SAG x AP x TRV). The kidney is normal in size, contour, and echogenicity. Renal cortical thickness is normal. No renal calculi or hydronephrosis. There is a peripelvic cyst versus focal caliectasis in lower pole measuring 1.0 x 1.1 x 1.3 cm and 1.9 x 0.8 x 1.2 cm. US/US renal BI IMPRESSION: Bilateral peripelvic cyst versus caliectasis. No echogenic stones.
== END 2022-03-24 15:56 | disposition home or self-care (01) ==
LOC: HO.US 15:55
PROVIDERS: Visit Provider Urology
DX: Q61.5 Medullary cystic kidney (principal)
CPT/HCPCS: 76775

== ENCOUNTER 2022-04-25 16:07 | Outpatient (REF) | payer OTHER, SELFPAY ==
--- NOTE | ~2022-04-25 | MM_ITS ---
EXAMINATION: MM SCREENING DIGITAL BREAST TOMOSYNTHESIS, BILATERAL CLINICAL INFORMATION: Screening. Asymptomatic. The lifetime risk of breast cancer based on the Tyrer-Cuzick Model is 7%. COMPARISON: Mammography: 01/04/2020, 10/15/2016, 06/21/2014 TECHNIQUE: Digital breast tomosynthesis is performed in both the craniocaudal and mediolateral oblique views along with computer-aided detection (CAD). Synthesized 2D images are generated from the tomosynthesis. FINDINGS: There are scattered areas of fibroglandular density (ACR BI-RADS breast composition Category b). There are no significant masses, abnormal calcifications, or other abnormalities. No developing density or architectural abnormality. Mild varix posterior medial left breast is stable. The axilla are unremarkable. There are no significant changes. MM/MM tomosynthesis screening BI IMPRESSION: No mammographic evidence of malignancy. ASSESSMENT: BI-RADS 2: Benign RECOMMENDATION: Routine annual mammography screening. This patient's information was entered into a reminder system with a target due date for their next mammogram.
== END 2022-04-25 16:08 | disposition home or self-care (01) ==
LOC: HO.MAMMO 16:07
PROVIDERS: PCP Internal Medicine; Visit Provider Internal Medicine
DX: Z12.31 Encounter for screening mammogram for malignant neoplasm of breast (principal)
CPT/HCPCS: 77063; 77067

== ENCOUNTER 2022-06-14 09:04 | Outpatient (REF) | payer OTHER, SELFPAY ==
[2022-06-14 09:17] LABS: MANUAL DIFF FLAG NO
[2022-06-14 10:27] LABS: Basophils Percent Auto 0.4 % (0-2); Eosinophils Absolute Auto 0.2 X10*3/uL (0.0-0.4); Eosinophils Percent Auto 2.1 % (0-4); Hematocrit 41.4 % (37.0-47.0); Hemoglobin 13.2 g/dl (12.0-16.0); Imm Gran Abs Auto 0.02 X10*3/uL (0.00-0.03); Imm Gran Pct Auto 0.3 % (0.0-0.4); Lymphocytes Percent Auto 25.4 % (20-40); Mean Corpuscular HGB Conc 31.9 g/dl (31.0-35.0); Mean Corpuscular Hemoglobin 29.6 pg (27.0-33.0); Mean Corpuscular Volume 92.8 fL (80.0-98.0); Mean Platelet Volume 9.7 fL (9.4-12.3); Monocytes Absolute Auto 0.8 X10*3/uL (0.1-1.2); Monocytes Percent Auto 10.3 % (2-11); Neutrophils Absolute Auto 4.8 x10*3/uL (2.0-8.3); Neutrophils Percent Auto 61.5 % (45-73); Platelet Count 327 X10*3/uL (160-400); Red Blood Count 4.46 X10*6/uL (4.20-5.50); Red Cell Distribution Width 13.3 % (11.0-16.0); White Blood Count 7.8 X10*3/uL (4.8-10.8)
[2022-06-14 10:37] LABS: Appearance Urine Clear; Color Urine Yellow; Glucose Urine UA Negative (Negative); Leukocyte Esterase Urine Negative (Negative); Nitrite Urine Negative (Negative); UMIC TRIGGER UA YES; Urine Blood Trace (Negative); Urine Ketones Negative (Negative); Urine Protein Negative (Neg-Trace)
[2022-06-14 10:40] LABS: Bacteria Urine Trace (None Seen); Hyaline Casts Urine 0-2 /LPF (0-2); RBC Urine 0-2 /HPF (0-2); WBC Urine 0-5 /HPF (0-5)
[2022-06-14 11:59] LABS: Alanine Aminotransferase 17 U/L (0-31); Albumin Level 4.2 g/dL (3.5-5.0); Alkaline Phosphatase 83 U/L (39-117); Anion Gap 13 (12-20); Aspartate Amino Transferase 17 U/L (5-31); Blood Urea Nitrogen 20 mg/dL (9-16); Carbon Dioxide 30 mmol/L (22-29); Chloride 103 mmol/L (96-108); Cholesterol 211 mg/dL; Estimated Glomerular Filt Rate > 60; Free T4 (Free Thyroxine) 1.02 ng/dL (0.71-1.85); Glucose Random 90 mg/dL (60-115); HDL Cholesterol 59 mg/dL; LDL Cholesterol Calculated 138 mg/dl; Potassium 4.8 mmol/L (3.3-5.1); Sodium 141 mmol/L (135-145); Thyroid Stimulating Hormone 1.84 uIU/mL (0.32-4.0); Total Protein 7.3 g/dL (6.5-8.0); Triglycerides 71 mg/dL; Vitamin D 25-OH Total 13.4 ng/mL (>30)
[2022-06-14 12:14] LABS: Bilirubin Total 0.4 mg/dL (0.0-1.0)
[2022-06-14 12:30] LABS: Folate 9.7 ng/mL (> or = 4.0); Vitamin B12 414 pg/mL (200-900)
== END 2022-06-14 09:05 | disposition home or self-care (01) ==
LOC: HO.LAB 09:04
PROVIDERS: PCP Internal Medicine; Visit Provider Internal Medicine
DX: E78.00 Pure hypercholesterolemia, unspecified (principal); K21.9 Gastro-esophageal reflux disease without esophagitis
CPT/HCPCS: 36415; 80053; 80061; 81001; 82306; 82607; 82746; 84439; 84443; 85025

== ENCOUNTER → 2022-08-18 15:44 | Outpatient (BNVA) | payer OTHER, SELFPAY | PROVIDERS: PCP Internal Medicine; Visit Provider Nurse Practitioner Family | DX: Z13.89 Encounter for screening for other disorder (principal) ==

== ENCOUNTER 2023-01-30 09:00 | Day surgery (SDC) | payer OTHER, SELFPAY ==
--- NOTE | 2023-01-29 10:26 | P.CONAN_ITS ---
Documented by User: Therese Centeno NP 01/29/23 10:26 HPI - Anesthesia Eval Consult details Narrative: 62yo F for Colonoscopy PMFSH Active Problems Active Problems: All Active Problems (Updated 08/18/22 @ 16:20 by Shanti Aguero [facility]) COVID-19 virus infection (Acute) Colon cancer screening (Acute) Annual physical exam (Acute) Sinus infection (Acute) Vulvar lesion (Acute) Asthma (Acute) Hypercholesterolemia (Acute) Obesity (Acute) GERD (gastroesophageal reflux disease) (Acute) Anxiety and depression (Acute) Obstructive sleep apnea (Acute) Osteoarthritis (Acute) Past Medical History Medical History (Updated 01/30/23 @ 09:06 by Alva Hya, RN) Allergic rhinitis Anxiety and depression Asthma Fibroids GERD (gastroesophageal reflux disease) History of renal calculi Hypercholesterolemia Obesity Obstructive sleep apnea Osteoarthritis Vitamin D deficiency Family History Family History Father Cancer of kidney Hypertension Diabetes Mother Diabetes Sister Cancer of nasal cavities Sister Substance abuse Bipolar 1 disorder Surgical History Surgical History H/O colonoscopy H/O right knee surgery History of section History of tubal ligation Social History Social History Housing: Apartment Alcohol intake: former Patient Tobacco Use Status: Former Tobacco user Quit Date: >30 yrs ago e-Cigarette/Vaping Use: Never Used Second Hand Smoke Exposure: No Use of substances other than those prescribed or required for medical reasons: No Are you DNR?: No Advance Directives: No Advance Directives Information Provided: Yes Current occupational status: employed Cognitive needs: No Hearing needs: No Vision needs: Yes Meds Allergies Allergy/AdvReac Type Severity Reaction Status Date / Time No Known Allergies Allergy Verified 01/30/23 09:08 Home Medications Medication Instructions Recorded Confirmed Last Taken Type No Known Home Meds 01/30/23 01/30/23 Unknown History Exam Exam Date and Time: January 29, 2023 1026 Assessment and Plan Assessment Anesthesia Assessment: Chart Reviewed Documented by User: Asha Brian MD 01/30/23 12:56 [facility] Past Medical History Medical History (Updated 01/30/23 @ 09:06 by Alva Hay, RN) Allergic rhinitis Anxiety and depression Asthma Fibroids GERD (gastroesophageal reflux disease) History of renal calculi Hypercholesterolemia Obesity Obstructive sleep apnea Osteoarthritis Vitamin D deficiency Family History Family History Father Cancer of kidney Hypertension Diabetes Mother Diabetes Sister Cancer of nasal cavities Sister Substance abuse Bipolar 1 disorder Family history of problems with anesthesia: No Surgical History Surgical History H/O colonoscopy H/O right knee surgery History of section History of tubal ligation History of Problems with Anesthesia: No Social History Social History Housing: Apartment Alcohol intake: former Patient Tobacco Use Status: Former Tobacco user Quit Date: >30 yrs ago e-Cigarette/Vaping Use: Never Used Second Hand Smoke Exposure: No Use of substances other than those prescribed or required for medical reasons: No Are you DNR?: No Advance Directives: No Advance Directives Information Provided: Yes Current occupational status: employed Cognitive needs: No Hearing needs: No Vision needs: Yes Meds Allergies Allergy/AdvReac Type Severity Reaction Status Date / Time No Known Allergies Allergy Verified 01/30/23 09:08 Home Medications Medication Instructions Recorded Confirmed Last Taken Type No Known Home Meds 01/30/23 01/30/23 Unknown History Exam Airway Mallampati Class: II TM Dist: >3cm Neck ROM: Full Loose/Missing/Broken Teeth: Yes (broken lower right) Heart: rr Lungs: cta Assessment and Plan Assessment Anesthesia Assessment: Anesthesia Plan Discussed Final Anesthetic Review Family History of Problems with Anesthesia: No History of Problems with Anesthesia: No NPO: Yes ASA Class: III Final Preanesthetic Review: No Changes in Pt Med Stat, Meds/Allgs Chart Rev iewed, Consent Obtained/Reviewed and Anes Risks/Benef Reviewed Patient Risk: Low Procedure Risk: Low Anesthetic Plan Anesthetic Plan: MAC: Disposition: Standard PACU
[2023-01-30 09:08] VITALS: BMI 40.5
[2023-01-30 09:17] VITALS: BP 127/83; PULSE 64; RESP 16; TEMP 35.8; O2SAT 99
[2023-01-30] MEDS: Lactated Ringers 1,000 ML 100 ML IVCONT (09:22)
--- NOTE | 2023-01-30 09:35 | MHC.SHP ---
Pre-Procedural Eval Section A Date of Service: 01/30/23 The patient is an INPATIENT: No The History & Physical has been completed within 30 days and I have reviewed it.: No Section B Chief Complaint: Screening, history of colon polyps Relevant Family History (Specify if Yes): No Relevant Social History: None Present Medications: see Short Stay Collaborative assessment Medical History: Significant History (Anxiety and depression Asthma Fibroids GERD (gastroesophageal reflux disease) History of renal calculi Hypercholesterolemia Obesity Obstructive sleep apnea Osteoarthritis Vitamin D deficiency) History of Previous Operations: Relevant previous surgery/procedure and date(s) (H/O colonoscopy H/O right knee surgery History of section History of tubal ligation) Allergies: Allergies Allergy/AdvReac Type Severity Reaction Status Date / Time No Known Allergies Allergy Verified 01/30/23 09:08 Review of Systems Sugical H&P ROS: Negative: Constitution, Cardiovascular, Respiratory and Gastrointestinal Exam Surgical H&P Exam: Normal: Heart, Normal: Lungs, Normal: Extremities and Normal: Abdomen Plan Diagnosis/Plan: Unchanged I have reviewed the history and physical and performed a pertinent physical examination on my patient. No changes have occurred unless specified. Time Spent With Patient Time: Total time managing care of this patient today ____ minutes.
--- NOTE | 2023-01-30 10:12 | W.PM.OPN ---
Operative Note Operative Note Date of Service: 01/30/23 Narrative: COLONOSCOPY TILL CECUM WITH BIOPSIES AND SNARE POLYPECTOMY Pre-op diagnosis: Colon cancer screening, history of colon polyps Post-op diagnosis:? colon polyps, diverticulosis, hemorrhoids Endoscopist:? Laura Monsalve MD Anesthesia:?MAC Consent: Indications for the procedure and potential complications of bleeding, perforation, reaction to medications and missed diagnosis were discussed with the patient and informed consent was obtained. Instrument: Olympus PCF H 190 L variable stiffness pediatric colonoscope Monitoring: Vital signs and clinical assessment, intermittent blood pressure monitoring, continuous EKG monitoring, Pulse oximetry and Carbon Dioxide monitoring were done throughout the procedure. Please see anesthesia flowsheet. Colon withdrawl time was 17 minutes. Procedure: The patient was placed in the left lateral decubitis position and pre-procedure medications were administered. After a digital rectal examination of the ano-rectum, the video colonoscope was inserted into the rectum and advanced through the colon to the cecum. The colonoscope was slowly withdrawn in a retrograde panoramic fashion and the colon mucosa was carefully examined including a retroflexed view of the rectum. Findings and interventions are described below. Procedure Difficulty: colon was long and tortuous and there was some loop formation. LLQ pressure applied to intubate the cecum. Findings: Terminal Ileum: Not evaluated Cecum: Normal Ascending Colon: Normal Transverse Colon: Normal Descending Colon: Moderate diverticulosis Sigmoid Colon: A 2-3 mm diminutive appearing polyp - Removed with a cold biopsy. Moderate diverticulosis Rectum: A 7-8 mm sessile polyp removed with a cold snare Ano-rectum: Moderate internal hemorrhoids Colon preparation: Excellent Impression and Post Procedure Diagnosis: Colonoscopy Findings: Two small polyps removed Moderate diverticulosis seen in the left colon Moderate hemorrhoids on retroflexed exam. Plan: I will send a letter with pathology results Repeat Colonoscopy interval based on path results - in 5 years if polyps are adenomatous and due to a history of adenomatous colon polyps. Above findings were reviewed with the patient and colon polyps and diverticulosis handouts were given in the discharge area
[2023-01-30 10:57] VITALS: BP 116/65; PULSE 68; RESP 22; TEMP 36.6; O2SAT 94
[2023-01-30 11:12] VITALS: BP 124/77; PULSE 58; RESP 18; TEMP 36.1; O2SAT 98
== END 2023-01-30 11:41 | disposition home or self-care (01) ==
PROVIDERS: PCP Internal Medicine; Visit Provider Internal Medicine Gastroenterology
PROC: 0DJD8ZZ Inspection of Lower Intestinal Tract, Via Natural or Artificial Opening Endoscopic (ICD-10-PCS; CPT 45378; principal; 2023-01-30 10:30)
DX: Z12.11 Encounter for screening for malignant neoplasm of colon (principal); D12.8 Benign neoplasm of rectum; K57.30 Diverticulosis of large intestine without perforation or abscess without bleeding; K64.8 Other hemorrhoids; K21.9 Gastro-esophageal reflux disease without esophagitis; E78.00 Pure hypercholesterolemia, unspecified; J45.909 Unspecified asthma, uncomplicated; G47.33 Obstructive sleep apnea (adult) (pediatric); E66.9 Obesity, unspecified; Z68.41 Body mass index [BMI] 40.0-44.9, adult; Z86.010 Personal history of colon polyps; Z99.89 Dependence on other enabling machines and devices
CPT/HCPCS: 45380; 45385; 88305

== ENCOUNTER → 2023-01-30 09:00 | Outpatient (BNV) | payer OTHER, SELFPAY | PROVIDERS: PCP Internal Medicine; Visit Provider Internal Medicine Gastroenterology | DX: Z12.11 Encounter for screening for malignant neoplasm of colon (principal); Z86.010 Personal history of colon polyps; K57.30 Diverticulosis of large intestine without perforation or abscess without bleeding; K64.8 Other hemorrhoids; D12.5 Benign neoplasm of sigmoid colon; D12.8 Benign neoplasm of rectum | CPT/HCPCS: 45380; 45385 ==

== ENCOUNTER 2023-04-01 16:22 | Outpatient (REF) | payer OTHER, SELFPAY ==
--- NOTE | ~2023-04-01 | US_ITS ---
EXAMINATION: US RETROPERITONEAL LIMITED (RENAL ONLY) CLINICAL INFORMATION: Medullary cystic kidney. COMPARISON: Renal ultrasound 03/24/2022 TECHNIQUE: Real-time imaging of the kidneys. FINDINGS: RIGHT KIDNEY: 11.6 x 4.8 x 5.6 cm (SAG x AP x TRV). The kidney is normal in size, contour, and echogenicity. Renal cortical thickness is normal. No calculi or focal parenchymal lesions. No hydronephrosis. Benign appearing peripelvic renal cysts, no imaging follow-up recommended. LEFT KIDNEY: 10.5 x 5.1 x 6.3 cm (SAG x AP x TRV). The kidney is normal in size, contour, and echogenicity. Renal cortical thickness is normal. No calculi or focal parenchymal lesions. No hydronephrosis. Benign appearing peripelvic renal cysts, no imaging follow-up recommended. US/US renal BI IMPRESSION: Benign appearing peripelvic renal cysts, no imaging follow-up recommended.
== END 2023-04-01 16:23 | disposition home or self-care (01) ==
LOC: HO.US 16:22
PROVIDERS: PCP Internal Medicine; Visit Provider Urology
DX: Q61.5 Medullary cystic kidney (principal)
CPT/HCPCS: 76775

== ENCOUNTER 2023-05-13 20:38 | Emergency (ER) | payer OTHER, SELFPAY ==
--- NOTE | ~2023-05-13 | CT_ITS ---
EXAMINATION: CT HEAD AND FACIAL BONES WITHOUT CONTRAST CLINICAL INFORMATION: Head trauma COMPARISON: CT head from 09/23/2020 TECHNIQUE: Contiguous axial imaging was performed from the skull base to vertex without intravenous administration of contrast. This CT examination was performed using dose optimization techniques as appropriate, variously including the following: *Automated exposure control *Adjustment of mA and/or kV according to patient size (this includes techniques or standardized protocols for targeted exams where dose is matched to indication/reason for exam; i.e. extremities or head) *Use of iterative reconstruction technique DLP: 1374 mGy-cm FINDINGS: There is no evidence of acute intracranial hemorrhage or territorial infarction. No abnormal mass effect or midline shift is seen. Soliz to white matter differentiation is well preserved. No extra-axial fluid collections are identified. The ventricles are normal in size. There is no abnormal attenuation within the brain parenchyma. Soft tissue swelling overlying the left frontal bone without underlying bony defect. The osseous structures and soft tissues are normal. The mastoid air cells and visualized portions of the paranasal sinuses are well aerated. CT/CT cervical spine wo IV con IMPRESSION: 1. No acute intracranial pathology. 2. No acute visible fracture or dislocation. 3. Soft tissue swelling overlying the left frontal bone without underlying bony defect. EXAMINATION: Noncontrast CT scan of the cervical spine. INDICATION: Neck pain status post fall COMPARISON: None. TECHNIQUE: Helical, multidetector axial images were obtained from the occiput to the upper thorax. Coronal and sagittal reformats of the cervical spine were provided for interpretation. DLP: 1374 mGy-cm FINDINGS: No acute fractures or dislocations of the cervical spine are seen. Multilevel degenerative changes. Anatomic alignment and positioning of the vertebral bodies and posterior elements is noted. The atlantoaxial joint and craniovertebral articulations are normal without evidence of subluxation. There is no prevertebral soft tissue swelling. The thyroid gland and visualized portions of the lung apices and mediastinum are unremarkable. IMPRESSION: 1. No acute visible fracture or dislocation. 2. Multilevel degenerative changes.
--- NOTE | 2023-05-13 20:47 | ED_ITS ---
HPI - General Adult General Chief complaint: Fall Stated complaint: fell, face inj Time Seen by Provider: 05/13/23 23:33 Source: patient Mode of arrival: ambulatory Limitations: no limitations History of Present Illness HPI narrative: 63 year old female presents s/p a fall at approximately 7pm. She states she was mopping her floor when she slipped and fell forward, striking her face on marble tile. She denies loss of consciousness. She reports landing on her face. She states most of her pain is on her nose and reports a bloody nose after the fall which stopped bleeding shortly after. She reports a mild headache, 6/10 in severity. She denies dizziness, vision changes, weakness, difficulty with balance, or confusion. She denies taking blood thinners. Related Data Home Medications Medication Instructions Recorded Confirmed No Known Home Meds 01/30/23 01/30/23 Allergies Allergy/AdvReac Type Severity Reaction Status Date / Time No Known Allergies Allergy Verified 05/13/23 20:49 Review of Systems Constitutional: Constitutional: Reports headache(s) and Denies weakness Eyes: Eyes: Denies blurry vision, Denies change in vision and Denies floaters ENT: Denies dizziness, Reports headache(s) and Denies neck pain Cardiovascular: Cardiovascular: Denies syncope Musculoskeletal: Musculoskeletal: Reports back pain (mild), Denies arthralgias, Denies muscle weakness and Denies neck pain Integumentary/Breasts: Skin/Breast: Denies unusual bruising and Denies wounds Neurologic: Denies confusion, Denies dizziness, Denies syncope, Reports headache(s), Denies lack of coordination, Denies focal weakness and Denies weakness Psychiatric: Psychiatric: Denies confusion [facility] Past Medical History Medical History (Updated 05/13/23 @ 23:45 by Sven Saldana) Fibroids History of renal calculi Asthma Hypercholesterolemia Obesity GERD (gastroesophageal reflux disease) Allergic rhinitis Anxiety and depression Obstructive sleep apnea Vitamin D deficiency Osteoarthritis Surgical History H/O colonoscopy H/O right knee surgery History of section History of tubal ligation Family History Family History Father Cancer of kidney Hypertension Diabetes Mother Diabetes Sister Cancer of nasal cavities Sister Substance abuse Bipolar 1 disorder Social History Social History Housing: Apartment Alcohol intake: former Patient Tobacco Use Status: Former Tobacco user Quit Date: >30 yrs ago Smoked in Last 30 Days: No e-Cigarette/Vaping Use: Never Used Second Hand Smoke Exposure: No Use of substances other than those prescribed or required for medical reasons: No Advance Directives: No Advance Directives Information Provided: Yes Patient : No Current occupational status: employed Cognitive needs: No Hearing needs: No Vision needs: Yes Physical Exam ED Vital Signs: Vital Signs - 24 hr 05/13/23 20:49 05/13/23 22:56 05/14/23 00:01 Temperature 97.7 F 97.1 F Pulse Rate 75 61 82 Respiratory Rate 20 16 18 Blood Pressure 152/65 H 172/87 H 167/82 H Pulse Oximetry 96 98 99 Oxygen Delivery Method Room Air Room Air Room Air BMI result Body Mass Index 40.4 Const General: No confusion Orientation/consciousness: patient oriented x3 and No confusion HENMT Other: Left frontal scalp hematoma Head: Yes No palpable skull fracture present, Yes normocephalic, No atraumatic, No abrasion, Yes hematoma (located over right eyebrow, approximately 4cm x 4cm, 0.5cm height, tender), No raccoon eyes and No scalp tenderness General nose exam: Normal external nose present, Normal septum present, No nasal discharge present and Other nasal findings present (tender to palpation) Eyes Conjunctivae: conjunctivae normal Sclerae: sclerae normal Corneas: corneas normal Pupils: Equal, round and reactive pupils present EOM: EOMs intact bilaterally Back/Spine/Pelvis Back: No back tenderness Cervical Spine: cervical ROM normal Thoracic/Lumbar Spine: thoraco-lumbar ROM normal Sacroiliac joints: bilaterally nontender to palpation Skin General skin exam: no ecchymosis Neuro General: patient oriented x3 and No confusion Cranial nerves: Yes CN's II-XII intact bilaterally, Yes Equal, round and reactive pupils present, Yes Bilaterally intact EOM present and Yes Nystagmus not present Cognition (Neuro): normal cognition Motor exam (neuro): 5/5 motor strength present throughout Course Course Course Narrative: This is an RME: Additional HPI, ROS, PE not included below will be deferred to primary provider. 63-year-old female presents with facial pain status post slipping while mopping, fell face forward reporting pain throughout her entire face. Not on blood thinners. No preceding symptoms to fall Plan- imaging Medical Decision Making Medical Decision Making MDM Narrative: 63-year-old male presents for evaluation after mechanical fall after she slipped on water while she was working. There was a head strike, no loss of conscious. Given the head strike a CT scan the brain, cervical spine and facial bones were ordered. She has no neuro deficits. No palpable deformities to the facial bones or scalp. Given this was a non syncopal episode I feel that labs would be unnecessary at this time Differential Diagnosis Differential Diagnoses: The differential diagnosis associated with the presentation includes contusion nasal fracture concussion hematoma intracranial hemorrhage less likely orbital fracture less likely Independent Interpretation I performed an independent interpretation of an: CT Scan Interpretation: Agree with radiology interpretation, no acute traumatic injuries of the facial bones. No acute hemorrhage. No a C-spine fracture Radiology Impression Discussion of test interpretation with radiology: I have reviewed the radiologist's reading. (No acute intracranial pathology. No acute visible fracture or dislocation. Soft tissue swelling overlying left frontal lobe without underlying bony defect) Discharge Plan Discharge Clinical Impression: Contusion of forehead Patient Disposition: Home, Self-Care Instructions: Facial Contusion (ED) Additional Instructions: The CT scan of your brain, cervical spine and facial bones not show any acute traumatic injuries You do have a small hematoma to your forehead Apply ice to the area every 4 hours for the next 2 days You may use Motrin and/or Tylenol for headache if you desire Follow-up with your primary doctor Prescriptions: No Action No Known Home Meds Stand Alone Forms: Work/School Release Interventions: ED Discharge Assessment Last Done: 05/14/23 00:04 Discharge Date/Time: 05/14/23 00:01
[2023-05-13 20:49] VITALS: BP 152/65; PULSE 75; RESP 20; TEMP 36.5; O2SAT 96; BMI 40.4
[2023-05-13 22:56] VITALS: BP 172/87; PULSE 61; RESP 16; TEMP 36.2; O2SAT 98
[2023-05-14 00:01] VITALS: BP 167/82; PULSE 82; RESP 18; O2SAT 99
== END 2023-05-14 00:01 | disposition home or self-care (01) ==
PROVIDERS: Emergency Provider Emergency Medicine; PCP Internal Medicine
DX: S00.83XA Contusion of other part of head, initial encounter (principal); W01.198A Fall on same level from slipping, tripping and stumbling with subsequent striking against other object, initial encounter; Y93.E5 Activity, floor mopping and cleaning; Y92.009 Unspecified place in unspecified non-institutional (private) residence as the place of occurrence of the external cause; Y99.9 Unspecified external cause status
CPT/HCPCS: 70450; 70486; 72125; 99284

== ENCOUNTER 2023-06-17 16:21 | Outpatient (AMB) | payer OTHER, SELFPAY ==
[2023-06-17 16:25] VITALS: BP 140/92; PULSE 77; O2SAT 100; BMI 41.8
--- NOTE | 2023-06-17 16:25 | MHC.PC.OV ---
Vital Signs 06/17/23 16:25 Height 4 ft 11 in Weight 207 lb 0.6 oz BMI 41.8 BP 140/92 H Blood Pressure Location Lt brachial Position Sitting Pulse 77 Pulse Source Pulse Oximeter Pulse Oximetry (%) 100 Oxygen Delivery Method Room Air Intake Visit Reasons: Physical exam Intake Note: Patient is here today for a physical. Automobile [employer]er Required: No Allergies No Known Allergies Allergy (Verified 06/17/23 16:38) Medication List - Last Reconciled 06/17/23 by BRANDY Abraham No Known Home Meds Tobacco use date assessed: 06/17/23 Dental Screening Dental Screen Date: 06/17/23 Did you have a dental visit in the last 12 months?: Yes Did you have a dental problem in the last 6 months where you did not have access to dental care?: No Was dental information given to patient?: Patient has dentist HPI Physical exam HPI Details Patient is a 63-year-old female who presents today for physical exam. Patient of Dr. Kiser. Medical history significant for RAYMUNDO-unable to tolerate CPAP, anxiety and depression, GERD, obesity, hypercholesterolemia, asthma. Patient has an upcoming mammogram 06/2023. She has referral to gynecology for a Pap smear. Colonoscopy 01/2023 with tubular adenoma was done by Dr. Monsalve. Today we discussed patient's need for pneumonia vaccine, she has declined. Eye exam within past year. Denies shortness of breath or chest pain. [facility] Medical History COVID-19 virus infection Sinus infection Fibroids History of renal calculi Asthma Hypercholesterolemia Obesity GERD (gastroesophageal reflux disease) Allergic rhinitis Anxiety and depression Obstructive sleep apnea Vitamin D deficiency Osteoarthritis Surgical History H/O colonoscopy H/O right knee surgery History of section History of tubal ligation Family History Father Cancer of kidney Hypertension Diabetes Mother Diabetes Sister Cancer of nasal cavities Sister Substance abuse Bipolar 1 disorder Social History Housing: Apartment Alcohol intake: former Patient Tobacco Use Status: Former Tobacco user Quit Date: >30 yrs ago e-Cigarette/Vaping Use: Never Used Second Hand Smoke Exposure: No Current occupational status: employed Cognitive needs: No Hearing needs: No Vision needs: Yes Questionnaire PHQ-9 Over the last 2 weeks, how often have you been bothered by any of the following problems? 1. Little interest or pleasure in doing things: not at all 2. Feeling down, depressed, or hopeless: not at all 3. Trouble falling or staying asleep, or sleeping too much: not at all 4. Feeling tired or having little energy: not at all 5. Poor appetite or overeating: not at all 6. Feeling bad about yourself - or that you are a failure or have let yourself or your family down: not at all 7. Trouble concentrating on things, such as reading the newspaper or watching television: not at all 8. Moving or speaking so slowly that other people could have noticed. Or the opposite - being so fidgety or restless that you have been moving around a lot more than usual: not at all 9. Thoughts that you would be better off or of hurting yourself in some way: not at all Total score: 0 Depression Screening Interpretation: Negative Depression Screening Done: Yes 66103 - PHQ-9 Billing: Yes Source: Developed by Drs. Mikal Real, Aleshia Gonzales, Fantasma Lopez and colleagues, with an educational rudy from [email or web address]. Thrive Questionnaire Date Thrive assessed: 06/17/23 I am a: Patient What is your living situation today?: I have a steady place to live Within the past 12 months, did the food you bought not last and you didn't have the money to get more?: Never true Within the past 12 months, did you worry whether your food would run out before you got money to buy more?: Never true Do you have trouble paying for medicines?: No Do you have trouble getting transportation to medical appointments?: No Do you have trouble paying your heating and electricity bill?: No Do you have trouble taking care of your child, family member or friend?: No Do you have trouble with day-to-day activities such as bathing, preparing meals, shopping, managing finances, etc.?: No Are you currently unemployed and looking for a job?: No Are you interested in more education?: No Currently or been in a relationship where the following occur: no concerns reported AUDIT C Alcohol Use Questionnaire (AUDIT-C) 1. How often do you have a drink containing alcohol?: Never Total Score: 0 Score Reviewed/Action Taken: No HOLLIS-7 AMB Questionnaire HOLLIS-7 Date HOLLIS - 7 assessed: 06/17/23 Feeling nervous, anxious, or on edge: 0 = Not at all Not being able to stop or control worryin = Not at all Worrying too much about different things: 0 = Not at all Trouble relaxin = Not at all Being so restless that it is hard to sit still: 0 = Not at all Becoming easily annoyed or irritable: 0 = Not at all Feeling afraid as if something awful might happen: 0 = Not at all Total HOLLIS-7 score (0-4 normal; 5-9 mild; 10-14 moderate; 15-21 severe): 0 Source: Developed by Drs. Mikal Real, Aleshia Gonzales, Fantasma Lopez and colleagues, with an educational rudy from [email or web address]. HOLLIS-7 Assessment Billing HOLLIS-7 Assessment Tool: HOLLIS-7 Assessment 79630 Review of Systems Const Denies body aches, Denies chills, Denies fever(s) and Denies headache(s) Eyes Denies change in vision ENT Denies dizziness, Denies otalgia, Denies headache(s), Denies nasal discharge, Denies sinus pain and Denies sore throat Card Denies chest pain, Denies edema, Denies lightheadedness and Denies dyspnea Resp Denies cough, Denies dyspnea and Denies wheezing GI Denies abdominal pain, Denies constipation, Denies diarrhea, Denies nausea and Denies vomiting Denies dysuria Musc Denies myalgias Skin/Breast Denies rash Neuro Denies dizziness and Denies headache(s) Aller/Immun Denies wheezing Physical exam (Primary Care) Vital Signs: Last Vital Signs Pulse 77 06/17/23 16:25 BP 140/92 H 06/17/23 16:25 Pulse Ox 100 06/17/23 16:25 Oxygen Delivery Method Room Air 06/17/23 16:25 BMI result Body Mass Index 41.8 Tobacco/Smoking Status: Tobacco use Status Tobacco use date assessed 06/17/23 06/17/23 16:26 Patient Tobacco Use Status Former Tobacco user 06/17/23 16:26 e-Cigarette/Vaping Use Never Used 06/17/23 16:26 PHQ-9: PHQ-9 Score PHQ-9: Total score 0 06/17/23 16:26 Depression Screening Interpretation: Negative Thrive Assessment: Date of Thrive Assessment Date Thrive assessed 06/17/23 06/17/23 16:26 Currently or been in a relationship where the following occur: no concerns reported Const General: cooperative and no acute distress Orientation/consciousness: patient oriented x3 HENMT Head: Yes normocephalic and Yes atraumatic Ears: TM's normal bilaterally Face and sinus: Yes sinuses nontender Mouth: oropharynx normal and moist mucous membranes Throat: Yes posterior oropharynx normal Eyes General: appearance normal, both eyes and all related structures Pupils: Equal, round and reactive pupils present EOM: EOMs intact bilaterally Neck Neck: Yes normal visual inspection, Yes full ROM and Yes no lymphadenopathy Thyroid: Thyroid normal Resp Effort & Inspection: normal respiratory effort and able to speak in complete sentences Auscultation: clear to auscultation bilaterally, no crackles, no rales, no rhonchi and no wheezes Cardio Rate: regular rate Rhythm: regular rhythm Heart sounds: S1 normal heart sound present, S2 normal heart sound present and no murmurs GI Palpation (GI): Soft to palpation, not firm, nontender, no guarding, not rigid and no hepatosplenomegaly Auscultation: normal bowel sounds General: No CVA tenderness Back/Spine/Pelvis Back: No CVA tenderness Skin General skin exam: no rashes or lesions noted Neuro General: patient oriented x3 Cranial nerves: Yes Equal, round and reactive pupils present Gait exam (Neuro): Normal gait present Extrem General: Yes full ROM and No edema Office Procedures Flu Questionnaire Does the patient have a severe egg allergy?: No Does the patient have severe life threatening allergies?: No Does the patient have a fever or illness today?: No Has the patient ever had Guillain-Pendleton Syndrome?: No Has the patient ever had any past reaction to a flu shot?: No Immunizations flu vacc [id number] 6mos up(PF) 60 mcg(15 mcgx4)/0.5 mL IM syringe Performing Provider: BRANDY Abraham [facility] Administered by: MOY Henley on 06/17/23 16:40 Dose Route Admin Location Dispensed Lot Number Expiration Date NDC Fish Bait Picker 0.5 mL IM Left Deltoid 0.5 mL [id number] 01/10/24 97537-301-06 [employer] VIS Given Date VIS Provided VIS Publication Date 06/17/23 Single Vaccine 21 Eligibility Eligibility Date Funding Source Not [facility] Eligible 06/17/23 Private Assessment and Plan Assessment & Plan (1) Annual physical exam: Code(s): Z00.00 - Encounter for general adult medical examination without abnormal findings Plan: Repeat in 1 year (2) Asthma: Comment: with colds only, no inhalers at home Code(s): J45.909 - Unspecified asthma, uncomplicated Plan: Stable Not on treatment (3) Hypercholesterolemia: Comment: no meds currently Code(s): E78.00 - Pure hypercholesterolemia, unspecified Plan: Low-cholesterol diet Lipid panel ordered (4) Obesity: Code(s): E66.9 - Obesity, unspecified Qualifiers: Body mass index: BMI 40.0-44.9 Serious obesity comorbidity presence: without serious comorbidity Plan: Encouraged healthy food choices and exercise as tolerated Patient has declined weight management referral at this time (5) GERD (gastroesophageal reflux disease): Code(s): K21.9 - Gastro-esophageal reflux disease without esophagitis Qualifiers: Esophagitis presence: esophagitis presence not specified Qualified Code(s): K21.9 - Gastro-esophageal reflux disease without esophagitis Plan: Diet controlled (6) Anxiety and depression: Code(s): F41.9 - Anxiety disorder, unspecified; F32.9 - Major depressive disorder, single episode, unspecified Plan: Stable Not on treatment Orders: Orders Vitamin D 25-OH Total Today Z00.00 - Encounter for general adult medical examination without abnormal findings Lipid Panel Today E78.00 - Pure hypercholesterolemia, unspecified Influenza [id number] Immunization Today Z23 - Encounter for immunization TSH reflex Free T4 Today Z00.00 - Encounter for general adult medical examination without abnormal findings Comprehensive [place]. Panel Fast Today E78.00 - Pure hypercholesterolemia, unspecified Complete Blood Count Auto Diff Today Z00.00 - Encounter for general adult medical examination without abnormal findings Coding Level of Care Code Est Pt Prev Care 40-64y(28030) Diagnoses Annual physical exam Z00.00 Asthma J45.909 Hypercholesterolemia E78.00 Obesity E66.9 Body mass index: BMI 40.0-44.9 Serious obesity comorbidity presence: without serious comorbidity Gastroesophageal reflux disease, unspecified whether esophagitis present K21.9 Esophagitis presence: esophagitis presence not specified Anxiety and depression F41.9; F32.9 Additional Codes HOLLIS-7 Assessment Billing - HOLLIS-7 Assessment Tool: HOLLIS-7 Assessment [id number] ([id number])
== END 2023-06-17 16:51 | disposition home or self-care (01) ==
PROVIDERS: PCP Internal Medicine; Visit Provider Nurse Practitioner Family
DX: Z00.00 Encounter for general adult medical examination without abnormal findings (principal); Z68.41 Body mass index [BMI] 40.0-44.9, adult; E66.9 Obesity, unspecified; Z23 Encounter for immunization; J45.909 Unspecified asthma, uncomplicated; E78.00 Pure hypercholesterolemia, unspecified; K21.9 Gastro-esophageal reflux disease without esophagitis; F41.9 Anxiety disorder, unspecified; F32.9 Major depressive disorder, single episode, unspecified
CPT/HCPCS: 90471; 90686; 99396

== ENCOUNTER 2023-06-29 15:24 | Outpatient (REF) | payer OTHER, SELFPAY | END 2023-06-29 15:25 | disposition home or self-care (01) | LOC: HO.MAMMO 15:24 | PROVIDERS: PCP Internal Medicine; Visit Provider Internal Medicine | DX: Z12.31 Encounter for screening mammogram for malignant neoplasm of breast (principal) | CPT/HCPCS: 77063; 77067 ==

== ENCOUNTER → 2023-06-29 15:30 | Outpatient (BNV) | payer OTHER, SELFPAY | PROVIDERS: PCP Internal Medicine; Visit Provider Radiology Diagnostic Radiology | DX: Z12.31 Encounter for screening mammogram for malignant neoplasm of breast (principal) | CPT/HCPCS: 77063; 77067 ==

== ENCOUNTER 2023-09-24 15:26 | Outpatient (REF) | payer OTHER, SELFPAY ==
[2023-10-03 09:18] LABS: HPV mRNA E6/E7 rflx Not Detected (Not Detected)
== END 2023-09-24 15:27 | disposition home or self-care (01) ==
LOC: HO.LNP 15:26
PROVIDERS: PCP Internal Medicine; Visit Provider Obstetrics & Gynecology
DX: Z01.419 Encounter for gynecological examination (general) (routine) without abnormal findings (principal); Z11.51 Encounter for screening for human papillomavirus (HPV)
CPT/HCPCS: 87624; 88142

== ENCOUNTER 2023-09-24 15:26 | Outpatient (AMB) | payer OTHER, SELFPAY ==
--- NOTE | 2023-09-24 15:42 | MHC.OFFVIS ---
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 No complaints. Last Pap/HPV was negative in 01/27 Last Mammogram was BI-RADS 1 in 07/04 Last colonoscopy was in 02/01, the recommendation was to repeat in 5 years [facility] Medical History COVID-19 virus infection Sinus infection Fibroids History of renal calculi Asthma Hypercholesterolemia Obesity GERD (gastroesophageal reflux disease) Allergic rhinitis Anxiety and depression Obstructive sleep apnea Vitamin D deficiency Osteoarthritis Surgical History H/O colonoscopy H/O right knee surgery History of section History of tubal ligation Family History Father Cancer of kidney Hypertension Diabetes Mother Diabetes Sister Cancer of nasal cavities Sister Substance abuse Bipolar 1 disorder Social History (Updated 09/24/23 @ 15:48 by Sharon Molina CMA) Household Members Other:: grandson Housing: House Alcohol intake: former Patient Tobacco Use Status: Former Tobacco user Quit Date: >30 yrs ago Years Smoked: 2 e-Cigarette/Vaping Use: Never Used Second Hand Smoke Exposure: No Current occupational status: employed 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 Sexually active: No Sexual orientation: Straight/Heterosexual Gender identity: Female Cognitive needs: No Hearing needs: No Vision needs: Yes Female Reproductive History Menstrual control method: permanent sterilization Total pregnancies: 5 Full term: 4 Number of Living Children: 4 Ab induced: 1 Date of last pap smear: 01/25/18 Date of Mammogram: 06/29/23 Review of Systems Const All systems reviewed & are unremarkable except as noted in HPI and below Card Reports as per HPI Resp Reports as per HPI GI Reports as per HPI and Reports no additional complaints Reports as per HPI Physical Exam Vital Signs: Last Vital Signs BP 136/80 09/24/23 15:43 BMI result Body Mass Index 41.0 Const General: cooperative, healthy appearing and comfortable Chest Chest palpation & inspection: normal inspection of the chest and normal palpation of entire chest wall Breast/axilla inspection: normal inspection of the breasts and normal inspection of the axillae Breast/axilla palpation: normal palpation of the breasts, normal palpation of the axillae and no axillary lymphadenopathy Resp Effort & Inspection: normal respiratory effort Auscultation: clear to auscultation bilaterally Percussion: percussion normal Cardio Palpation: normal PMI Rate: regular rate Rhythm: regular rhythm Heart sounds: no murmurs and no rubs Peripheral pulses: Peripheral pulses 2+ throughout GI Inspection: Yes normal to inspection Palpation (GI): Soft to palpation, nontender, no guarding, not rigid and No hepatosplenomegaly present Percussion: Yes normal to percussion Auscultation: normal bowel sounds Rectal Exam - Female: deferred General: Yes bladder normal to palpation External Female Exam: No lesion Speculum Exam - Vagina: normal appearance of the vagina, normal palpation, normal vaginal discharge and not erythematous Speculum Exam - Cervix: normal appearance of the cervix and normal palpation Bimanual exam- vagina & uterus: normal bimanual exam, normal palpation, uterine size normal, bladder normal to palpation, consistency normal and normal palpation Bimanual Exam- Adnexa, other: normal adnexae, no masses and no tenderness Assessment & Plan Assessment & Plan (1) Well woman exam: Code(s): Z01.419 - Encounter for gynecological examination (general) (routine) without abnormal findings Plan: Co testing done. Counseled the patient about the recommended dietary allowance of 1200 mg of Calcium & 600 IU of vitamin D. Instructions given the patient to schedule next screening Mammogram in 07/05. The patient was instructed to perform monthly self-breast exams and schedule annual exam in a year. All questions answered and the patient verbalized understanding. Coding Level of Care Code Est Pt Prev Care 40-64y(89298) Diagnoses Well woman exam Z01.419
[2023-09-24 15:43] VITALS: BP 136/80; BMI 41.0
== END 2023-09-24 16:17 | disposition home or self-care (01) ==
LOC: HO.HWS 15:26
PROVIDERS: PCP Internal Medicine; Visit Provider Obstetrics & Gynecology
DX: Z01.419 Encounter for gynecological examination (general) (routine) without abnormal findings (principal)
CPT/HCPCS: 99396

== ENCOUNTER → 2024-06-30 15:54 | Outpatient (BNVA) | payer OTHER, SELFPAY | PROVIDERS: PCP Internal Medicine; Visit Provider Physician Assistant Medical | DX: S60.222A Contusion of left hand, initial encounter (principal); S29.012A Strain of muscle and tendon of back wall of thorax, initial encounter; W17.89XA Other fall from one level to another, initial encounter | CPT/HCPCS: 73030; 73110; 73130; 99202 ==

== ENCOUNTER → 2024-07-04 12:03 | Outpatient (BNVA) | payer OTHER, SELFPAY | PROVIDERS: PCP Internal Medicine; Visit Provider Physician Assistant Medical | DX: S60.222A Contusion of left hand, initial encounter (principal); W17.89XA Other fall from one level to another, initial encounter; M79.89 Other specified soft tissue disorders | CPT/HCPCS: 99213 ==

== ENCOUNTER → 2024-07-18 15:05 | Outpatient (BNVA) | payer OTHER, SELFPAY | PROVIDERS: PCP Internal Medicine; Visit Provider Physician Assistant Medical | DX: S60.032D Contusion of left middle finger without damage to nail, subsequent encounter (principal); S60.222D Contusion of left hand, subsequent encounter; W17.89XD Other fall from one level to another, subsequent encounter | CPT/HCPCS: 99213 ==

== ENCOUNTER 2024-08-01 15:22 | Outpatient (RCR) | payer OTHER, SELFPAY ==
--- NOTE | 2024-07-27 14:40 | MHC.OT.EP ---
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 She was throwing trash away at work when her hand caught, and she fell into the dumpster. She went to the ED at [facility] and had X-rays taken which were negative frog fractures. She was celi taped (which she is still doing) and reports it was helping to pain and increase the use of her L hand. Pt is works in [email or web address] in [facility]. She is still currently working and is modifying her duty as needed. 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 Thank you once again for your referral.
== END 2024-08-01 15:44 | disposition home or self-care (01) ==
LOC: HO.OT 15:22
PROVIDERS: PCP Internal Medicine; Visit Provider Physician Assistant Medical
DX: S60.032D Contusion of left middle finger without damage to nail, subsequent encounter (principal); S60.042D Contusion of left ring finger without damage to nail, subsequent encounter; S63.613D Unspecified sprain of left middle finger, subsequent encounter; S63.615D Unspecified sprain of left ring finger, subsequent encounter
CPT/HCPCS: 97110; 97140; 97166; 97535

== ENCOUNTER 2024-10-14 13:21 | Outpatient (AMB) | payer OTHER, SELFPAY ==
[2024-10-14 13:27] VITALS: BP 146/96; PULSE 64; TEMP 36.5; O2SAT 99; BMI 42.9
--- NOTE | 2024-10-14 13:27 | MHC.PC.OV ---
Vital Signs 10/14/24 13:27 Height 4 ft 11 in Weight 212 lb 8 oz BMI 42.9 BP 146/96 H Blood Pressure Location Lt brachial Position Sitting Pulse 64 Pulse Source Pulse Oximeter Temp 97.7 F Temp Source Temporal Artery Scan Pulse Oximetry (%) 99 Oxygen Delivery Method Room Air Intake Visit Reasons: PE Paid Search Manager Required: No Accompanied by: Self / Same As Patient Allergies No Known Allergies Allergy (Verified 10/14/24 13:33) Tobacco use date assessed: 10/14/24 Dental Screening Dental Screen Date: 10/14/24 Did you have a dental visit in the last 12 months?: Yes Did you have a dental problem in the last 6 months where you did not have access to dental care?: No Was dental information given to patient?: Patient has dentist HPI PE HPI Details fall 06/30/2024 xray done L hand pain PFSH Medical History COVID-19 virus infection Sinus infection Fibroids History of renal calculi Asthma Hypercholesterolemia Obesity GERD (gastroesophageal reflux disease) Allergic rhinitis Anxiety and depression Obstructive sleep apnea Vitamin D deficiency Osteoarthritis Surgical History H/O colonoscopy H/O right knee surgery History of section History of tubal ligation Family History Father Cancer of kidney Hypertension Diabetes Mother Diabetes Sister Cancer of nasal cavities Sister Substance abuse Bipolar 1 disorder Social History (Updated 10/14/24 @ 13:59 by Selvin Kiser MD) Household Members Other:: grandson Housing: House Alcohol intake: former Comment: quit 32 years old Patient Tobacco Use Status: Former Tobacco user Years Smoked: 2 stopped 32 years old e-Cigarette/Vaping Use: Never Used Second Hand Smoke Exposure: No service: No Current occupational status: employed 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 1. Little interest or pleasure in doing things: not at all 2. Feeling down, depressed, or hopeless: not at all 3. Trouble falling or staying asleep, or sleeping too much: not at all 4. Feeling tired or having little energy: not at all 5. Poor appetite or overeating: not at all 6. Feeling bad about yourself - or that you are a failure or have let yourself or your family down: not at all 7. Trouble concentrating on things, such as reading the newspaper or watching television: not at all 8. Moving or speaking so slowly that other people could have noticed. Or the opposite - being so fidgety or restless that you have been moving around a lot more than usual: not at all 9. Thoughts that you would be better off or of hurting yourself in some way: not at all Total score: 0 Depression Screening Interpretation: Negative Depression Screening Done: Yes 48068 - PHQ-9 Billing: Yes Source: Developed by Drs. Mikal Real, Aleshia Gonzales, Fantasma Lopez and colleagues, with an educational rudy from [employer]. Thrive Questionnaire Date Thrive assessed: 10/14/24 I am a: Patient What is your living situation today?: I have a steady place to live Within the past 12 months, did the food you bought not last and you didn't have the money to get more?: Never true Within the past 12 months, did you worry whether your food would run out before you got money to buy more?: Never true Do you have trouble paying for medicines?: I choose not to answer this question Do you have trouble getting transportation to medical appointments?: No Do you have trouble paying your heating and electricity bill?: No Do you have trouble taking care of your child, family member or friend?: No Do you have trouble with day-to-day activities such as bathing, preparing meals, shopping, managing finances, etc.?: No Are you currently unemployed and looking for a job?: No Are you interested in more education?: No Please select the resources that you would like help with: None Currently or been in a relationship where the following occur: No concerns reported THRIVE Score: 0 AUDIT C Alcohol Use Questionnaire (AUDIT-C) 1. How often do you have a drink containing alcohol?: Never 3. How often do you have six or more drinks on one occasion?: Never Total Score: 0 HOLLIS-7 AMB Questionnaire HOLLIS-7 Date HOLLIS - 7 assessed: 10/14/24 Feeling nervous, anxious, or on edge: 0 = Not at all Not being able to stop or control worryin = Not at all Worrying too much about different things: 0 = Not at all Trouble relaxin = Not at all Being so restless that it is hard to sit still: 0 = Not at all Becoming easily annoyed or irritable: 0 = Not at all Feeling afraid as if something awful might happen: 0 = Not at all Total HOLLIS-7 score (0-4 normal; 5-9 mild; 10-14 moderate; 15-21 severe): 0 Source: Developed by Drs. Mikal Real, Aleshia Gonzales, Fantasma Lopez and colleagues, with an educational rudy from [employer]. HOLLIS-7 Assessment Billing HOLLIS-7 Assessment Tool: HOLLIS-7 Assessment 10151 Review of Systems Const Denies poor appetite and Denies weakness Eyes Denies no additional complaints ENT Reports Normal hearing present, Denies dizziness, Denies nasal congestion, Denies tinnitus and Denies sore throat Card Denies chest pain, Denies syncope, Denies rapid heart rate and Denies dyspnea Resp Denies cough and Denies dyspnea GI Denies change in stool character, Reports constipation, Denies diarrhea, Denies nausea and Denies vomiting Denies urinary frequency, Denies difficulty voiding and Denies dysuria Neuro Reports Normal hearing present, Denies confusion, Denies dizziness, Denies syncope and Denies weakness Psych Denies confusion Physical exam (Primary Care) Vital Signs: Last Vital Signs Temp 97.7 F 10/14/24 13:27 Pulse 64 10/14/24 13:27 BP 146/96 H 10/14/24 13:27 Pulse Ox 99 10/14/24 13:27 Oxygen Delivery Method Room Air 10/14/24 13:27 BMI result Body Mass Index 42.9 Tobacco/Smoking Status: Tobacco use Status Tobacco use date assessed 10/14/24 10/14/24 13:34 Patient Tobacco Use Status Former Tobacco user 10/14/24 13:27 e-Cigarette/Vaping Use Never Used 10/14/24 13:27 PHQ-9: PHQ-9 Score PHQ-9: Total score 0 10/14/24 13:34 Depression Screening Interpretation: Negative Thrive Assessment: Date of Thrive Assessment Date Thrive assessed 10/14/24 10/14/24 13:34 Currently or been in a relationship where the following occur: No concerns reported Const General: No confusion Orientation/consciousness: No confusion HENMT Head: Yes normocephalic Ears: external ears normal and TM's normal bilaterally Face and sinus: Yes normal facial exam Mouth: moist mucous membranes Throat: Yes tonsils normal Eyes Conjunctivae: conjunctivae normal Pupils: Equal, round and reactive pupils present and Pupil accommodation reflex normal Direct Ophthalmoscopy: normal light reflex Neck Neck: No lymphadenopathy Thyroid: Thyroid normal Chest Chest palpation & inspection: normal inspection of the chest Resp Effort & Inspection: normal respiratory effort and no audible wheezes Auscultation: clear to auscultation bilaterally, no crackles, no wheezes and lung sounds not diminished Cardio Rate: regular rate Rhythm: regular rhythm Peripheral pulses: radial pulses present and dorsalis pedis present GI Palpation (GI): no masses Auscultation: normal bowel sounds and normoactive bowel sounds Rectal Exam - Female: deferred Skin General skin exam: no rashes or lesions noted Rashes: no rashes Neuro General: No confusion Cranial nerves: Yes Equal, round and reactive pupils present and Yes Normal hearing present Cognition (Neuro): normal cognition Gait exam (Neuro): Normal gait present Motor exam (neuro): 5/5 motor strength present throughout Deep tendon reflexes (DTR's): Right brachioradialis reflex intensity grade: 2+, Left brachioradialis reflex intensity grade: 2+, Right patellar reflex intensity grade: 2+ and Left patellar reflex intensity grade: 2+ Extrem General: No edema Coding Level of Care Code Est Pt Prev Care 40-64y(06277) Diagnoses Annual physical exam Z00.00 Obstructive sleep apnea G47.33 Gastroesophageal reflux disease, unspecified whether esophagitis present K21.9 Esophagitis presence: esophagitis presence not specified Morbid obesity E66.01 Breast cancer screening by mammogram Z12.31 Hypercholesterolemia E78.00 Blood pressure elevated without history of HTN R03.0 Trigger finger, left M65.30 Additional Codes HOLLIS-7 Assessment Billing - HOLLIS-7 Assessment Tool: HOLLIS-7 Assessment 81947 ([id number]) PHQ-9 - 32836 - PHQ-9 Billing: Yes ([id number]) Assessment & Plan Assessment & Plan (1) Annual physical exam: Code(s): Z00.00 - Encounter for general adult medical examination without abnormal findings Category: Medical Plan: Patient is advised to eat healthy, keep well hydrated, keep active and have adequate sleep. (2) Obstructive sleep apnea: Comment: Fullface mask medium 14 cm water CPAP October 1999 patient cannot tolerate CPAP Code(s): G47.33 - Obstructive sleep apnea (adult) (pediatric) Category: Medical Plan: Discussed importance of treating obstructive sleep apnea (3) GERD (gastroesophageal reflux disease): Code(s): K21.9 - Gastro-esophageal reflux disease without esophagitis Category: Medical Qualifiers: Esophagitis presence: esophagitis presence not specified Qualified Code(s): K21.9 - Gastro-esophageal reflux disease without esophagitis Plan: Avoid the foods that causes that usually spicy foods, tomato products, juices, coffee, soda and foods that your sensitive to. After eating do not lie down, allow 3-4 hours before in lie down. And keep the head of bed above 30 degrees to avoid the acid from going up. (4) Morbid obesity: Code(s): E66.01 - Morbid (severe) obesity due to excess calories Category: Medical Plan: Diet and exercise (5) Breast cancer screening by mammogram: Code(s): Z12.31 - Encounter for screening mammogram for malignant neoplasm of breast Category: Medical Plan: Patient is reminded about mammogram (6) Hypercholesterolemia: Comment: no meds currently Code(s): E78.00 - Pure hypercholesterolemia, unspecified Category: Medical Plan: Avoid fried foods, chicken skin, eggs, butter margarine, pastries and meat. Be it pork or beef they have a lot of cholesterol (7) Blood pressure elevated without history of HTN: Code(s): R03.0 - Elevated blood-pressure reading, without diagnosis of hypertension Category: Medical Plan: monitor the BP and record (8) Trigger finger, left: Code(s): M65.30 - Trigger finger, unspecified finger Category: Medical Plan History of Present Illness The patient is a 64-year-old female presenting for a physical exam. She reports a recent 9-pound weight gain and has a significant history of morbid obesity. The patient has been diagnosed with obstructive sleep apnea and cannot tolerate CPAP therapy. Her medical history includes gastroesophageal reflux disease, hypercholesterolemia, asthma, and generalized anxiety disorder. She had a fall on June 30, resulting in sprained fingers with suspected osteoarthritic changes but no fracture confirmed via imaging. Spontaneous resolution is anticipated with conservative care, as outlined for trigger finger. The patient abstains from alcohol and tobacco, having ceased their use over 30 years ago. She denies relevant respiratory, gastrointestinal, or cardiac symptoms directly affecting her quality of life or health status at present. Health Maintenance - Discussed important need for mammogram screening; patient has scheduled appointment. - Colonoscopy was completed in January 2023, noted tubular adenoma; follow-up scheduled as necessary. - Recommended weight management through diet and exercise. - Blood work, with a focus on hypercholesterolemia, to be done fasting to monitor lipid levels. - Encouraged regular hydration and nutritional diet adherence. - Discussed obtaining tetanus booster due to last vaccine in 2014, available at pharmacy. - Shingles vaccine discussed as a potential health consideration. - Follow-up check-up advised at three months. 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 - History of falls at work as noted in June. - Abstains from alcohol for over 30 years. - Never smoked. - Regular hydration habits mentioned. - Engages in diet adjustments for health as much as possible. Review of Systems - Respiratory: Reports obstructive sleep apnea; Denies shortness of breath, chest pain. - Gastrointestinal: Reports GERD; Denies heartburn, constipation. - Neurological: Denies dizziness, loss of consciousness. - Musculoskeletal: Reports trigger finger symptoms, swelling of fingers post-injury. - Dermatological: Denies any new lumps or bumps. - Genitourinary: Denies dysuria or frequency. Physical Exam General: Cooperative, morbidly obese, comfortable, no acute distress and well developed Orientation: Patient oriented x3 Limitations: No limitations Head: Normal to inspection Ears: Hearing grossly normal bilaterally, some urethra noted but not bilateral Nose: Normal external nose present Face and sinus: Normal facial exam Eyes: Appearance normal, both eyes and all related structures Neck: Normal visual inspection and Yes full ROM Respiratory: Normal respiratory effort and able to speak in complete sentences. Clear to auscultation bilaterally Cardiovascular: Regular rate and rhythm. Normal S1 and S2 GI: Normal to inspection. Soft to palpation and nontender Skin: No rashes or lesions noted Neuro: Patient oriented x3 Extremities: Normal to inspection, noted sprain in two fingers with possible tendon damage, trigger finger discussed Results - Labs: Forthcoming, including lipid panel requiring fasting. - Imaging: Hand x-ray suggests arthritis; no confirmed fractures. - Colonoscopy: Completed, with presence of tubular adenoma. Plan The management plan focused on the patient's chronic conditions including her morbid obesity, proposing modifications in dietary intake and emphasizing the role of exercise. The impact of her obstructive sleep apnea was discussed, considering alternative treatments since she cannot tolerate a CPAP device. Conservative management is advised for her finger injuries with the continuation of non-movement to decrease swelling indicative of trigger finger. For her hypercholesterolemia, a lipid profile check was advised. Routine health maintenance was emphasized, including updating vaccinations and completing pending screenings for breast cancer. Follow-up in three months was planned for reassessment of current interventions. Patient was informed and verbally consented to the use of an ambient scribe for clinic note documentation during this visit. Discussion Notes During the visit, we addressed each health concern and discussed an integrated approach to management. The patient expressed understanding and agreement with the proposal to manage morbid obesity through lifestyle modifications. We reviewed the condition of obstructive sleep apnea, considering her intolerance of CPAP, and possible alternatives were discussed. Addressing the effects of her fall in June, I explained the nature and treatment of her trigger finger, and conservative management was decided upon with referral contingency. On vaccinations, I advised the necessity of having her tetanus shot due since 2014 and discussed the benefits of the shingles vaccine. The blood work and mammogram were organized, and the patient was encouraged to adhere to preventive care schedules. Consent for all proposed interventions and strategies were discussed. Patient Instructions - Monitor dietary intake and engage in regular exercise to manage weight. - Understand the need for fasting before the upcoming blood work. - Follow conservative management for trigger finger to decrease swelling. - Complete the scheduled mammogram and any recommended follow-up for colonoscopy findings. - Attend to vaccination needs, including tetanus booster via the pharmacy. - Consider shingles vaccination if interested, available at pharmacy. - Return in three months for reassessment and further discussion on chronic health management. - Contact office if symptoms worsen or new symptoms arise. Orders: Orders Thyroid Stimulating Hormone Today E78.00 - Pure hypercholesterolemia, unspecified Vitamin D 25-OH Total Today E78.00 - Pure hypercholesterolemia, unspecified Complete Blood Count Auto Diff Today E78.00 - Pure hypercholesterolemia, unspecified Comprehensive Met. Panel Today E78.00 - Pure hypercholesterolemia, unspecified Free T4 (Free Thyroxine) Today E78.00 - Pure hypercholesterolemia, unspecified Vitamin B12 and Folate Today E78.00 - Pure hypercholesterolemia, unspecified Lipid Panel Today E78.00 - Pure hypercholesterolemia, unspecified Hemoglobin A1c Today E78.00 - Pure hypercholesterolemia, unspecified
== END 2024-10-14 14:13 | disposition home or self-care (01) ==
LOC: HO.HMCH 13:21
PROVIDERS: PCP Internal Medicine; Visit Provider Internal Medicine
DX: Z00.00 Encounter for general adult medical examination without abnormal findings (principal); G47.33 Obstructive sleep apnea (adult) (pediatric); E66.01 Morbid (severe) obesity due to excess calories; Z68.41 Body mass index [BMI] 40.0-44.9, adult; K21.9 Gastro-esophageal reflux disease without esophagitis; Z12.31 Encounter for screening mammogram for malignant neoplasm of breast; E78.00 Pure hypercholesterolemia, unspecified; R03.0 Elevated blood-pressure reading, without diagnosis of hypertension; M65.312 Trigger thumb, left thumb

== ENCOUNTER → 2024-10-14 13:21 | Outpatient (BNVA) | payer OTHER, SELFPAY | PROVIDERS: PCP Internal Medicine; Visit Provider Internal Medicine | DX: Z00.00 Encounter for general adult medical examination without abnormal findings (principal); G47.33 Obstructive sleep apnea (adult) (pediatric); K21.9 Gastro-esophageal reflux disease without esophagitis; E66.01 Morbid (severe) obesity due to excess calories; Z68.41 Body mass index [BMI] 40.0-44.9, adult; E78.00 Pure hypercholesterolemia, unspecified; R03.0 Elevated blood-pressure reading, without diagnosis of hypertension; M65.30 Trigger finger, unspecified finger | CPT/HCPCS: 96127 ==

== ENCOUNTER 2024-11-03 15:23 | Outpatient (REF) | payer OTHER, SELFPAY | END 2024-11-03 15:24 | disposition home or self-care (01) | LOC: HO.MAMMO 15:23 | PROVIDERS: PCP Internal Medicine; Visit Provider Internal Medicine | DX: Z12.31 Encounter for screening mammogram for malignant neoplasm of breast (principal) | CPT/HCPCS: 77063; 77067 ==

== ENCOUNTER → 2024-11-03 16:30 | Outpatient (BNV) | payer OTHER, SELFPAY | PROVIDERS: PCP Internal Medicine; Visit Provider Internal Medicine | DX: Z12.31 Encounter for screening mammogram for malignant neoplasm of breast (principal) | CPT/HCPCS: 77063; 77067 ==

== ENCOUNTER 2024-11-09 14:55 | Outpatient (REF) | payer OTHER, SELFPAY ==
[2024-11-10 11:30] LABS: Influenza A PCR NEGATIVE (Negative); Influenza B PCR NEGATIVE (Negative); Resp Syncy Virus RNA Qual PCR NEGATIVE (Negative); SARS COV2 PCR INHOUSE NEGATIVE (Negative)
== END 2024-11-09 14:56 | disposition home or self-care (01) ==
LOC: HO.LNP 14:55
PROVIDERS: Physician Assistant; PCP Internal Medicine
DX: J11.1 Influenza due to unidentified influenza virus with other respiratory manifestations (principal); R09.89 Other specified symptoms and signs involving the circulatory and respiratory systems
CPT/HCPCS: 0241U; 87880

== ENCOUNTER 2024-11-09 14:55 | Outpatient (AMB) | payer OTHER, SELFPAY ==
[2024-11-09 15:21] VITALS: BP 128/72; PULSE 87; RESP 16; TEMP 37; O2SAT 97; BMI 43.4
--- NOTE | 2024-11-09 15:21 | AM.OFFWIN_ITS ---
Intake Vital Signs 11/09/24 15:21 Height 4 ft 11 in Weight 215 lb BMI 43.4 BP 128/72 Blood Pressure Location Lt radial Position Sitting Respiration 16 Pulse 87 Pulse Source Pulse Oximeter Temp 98.6 F Temp Source Oral Pulse Oximetry (%) 97 Oxygen Delivery Method Room Air Intake Visit Reasons: EP chest pain, throat pain, body aches Intake Note: Pt is here today c/o sore throat, chills, cough and bodyaches x1.5days Patient Tobacco Use Status: Former Tobacco user Allergies No Known Allergies Allergy (Verified 11/09/24 15:24) HPI HPI Comments History of Present Illness Details She presents to office with flu like symptoms + cough, chest tightness, body aches + chills, fever, phlegm with cough Onset yesterday and denies sick contacts She has not tried anything + congestion + ST without ear pain Hx of asthma with wheezing and has nebulizer Has not had to use for current symptoms or within the last year No sick contacts No COVID or flu test taken PFSH Medical History COVID-19 virus infection Sinus infection Fibroids History of renal calculi Asthma Hypercholesterolemia Obesity GERD (gastroesophageal reflux disease) Allergic rhinitis Anxiety and depression Obstructive sleep apnea Vitamin D deficiency Osteoarthritis Surgical History H/O colonoscopy H/O right knee surgery History of section History of tubal ligation Family History Father Cancer of kidney Hypertension Diabetes Mother Diabetes Sister Cancer of nasal cavities Sister Substance abuse Bipolar 1 disorder Social History (Updated 10/14/24 @ 13:59 by Selvin Kiser MD) Household Members Other:: grandson Housing: House Alcohol intake: former Comment: quit 32 years old Patient Tobacco Use Status: Former Tobacco user Years Smoked: 2 stopped 32 years old e-Cigarette/Vaping Use: Never Used Second Hand Smoke Exposure: No service: No Current occupational status: employed 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 Sexual orientation: Straight/Heterosexual Gender identity: Female Cognitive needs: No Hearing needs: No Vision needs: Yes Review of Systems Const Reports chills, Reports fatigue, Reports fever(s) and Denies headache(s) Eyes Denies change in vision ENT Denies dizziness, Denies otalgia, Denies headache(s), Reports nasal congestion, Denies nasal discharge, Reports sore throat and Denies throat swelling Card Denies chest pain, Denies syncope and Denies dyspnea Resp Reports cough and Denies dyspnea GI Denies abdominal pain, Denies diarrhea, Denies nausea and Denies vomiting Musc Reports myalgias Skin/Breast Denies rash Neuro Denies dizziness, Denies syncope and Denies headache(s) Endo Reports fatigue Aller/Immun Denies throat swelling Physical Exam Vital Signs: Last Vital Signs Temp 98.6 F 11/09/24 15:21 Pulse 87 11/09/24 15:21 Resp 16 11/09/24 15:21 BP 128/72 11/09/24 15:21 Pulse Ox 97 11/09/24 15:21 Oxygen Delivery Method Room Air 11/09/24 15:21 BMI result Body Mass Index 43.4 General: Non-toxic, NAD. Speaking full sentences. Skin: Warm dry throughout Eye: EOMI HENT: Airway patent. Uvula midline. No pharyngeal erythema or edema. No LAUNDRY OPERATOR FINISHING. Bilateral canals clear. TM non-erythematous, non-bulging. No TM perforation or hemotympanum noted. Respiratory: CTA bilaterally. No wheezes, rales or rhonchi Cardiac: RRR. No murmur MSK: Full ROM extremities. Neurology: Alert. No aphasia or facial droop. Gait without abnormality Psych: Good mood and affect Results AMB Rapid Strep AMB Rapid Strep Negative Last Edit by Yojana Mckeon CMA on 11/09/24 15:30 Results Reviewed Results Reviewed: Laboratory Last Values Strep Scn [facility] Clinic Negative 11/09/24 15:27 Assessment & Plan Assessment & Plan (1) Influenza-like illness: Code(s): J11.1 - Influenza due to unidentified influenza virus with other respiratory manifestations Plan: Patient seen and evaluated. Non-toxic appearing Lungs CTA Flu/Covid/RsV swab ordered and obtained Tylenol/motrin to control fever/body aches Tessalon for cough Fluids. [place] diet Patient gave verbal understanding and had no additional questions or concerns at time of discharge All questions answered Orders: Orders AMB Rapid Strep Screen Today Selma Shelton PA-C Z13.9 - Encounter for screening, unspecified SARS-CoV2/FLU/RSV Today Doreen Salvador PA-C R09.89 - Other specified symptoms and signs involving the circulatory and respiratory systems Medications: New 2 benzonatate 100 mg PO BID-TID PRN 20 caps 0RF cough Doreen Salvador PA-C Coding Level of Care Code Est Pt Level 3 (81949) Diagnoses Influenza-like illness J11.1
== END 2024-11-09 15:46 | disposition home or self-care (01) ==
PROVIDERS: PCP Internal Medicine; Visit Provider Physician Assistant
DX: Z13.9 Encounter for screening, unspecified (principal); J11.1 Influenza due to unidentified influenza virus with other respiratory manifestations

== ENCOUNTER 2024-11-17 02:32 | Emergency (ER) | payer OTHER, SELFPAY ==
--- NOTE | ~2024-11-17 | XR_ITS ---
CLINICAL HISTORY: cough 2 view chest x-ray. Comparison: None Findings: The lungs appear clear. There is no consolidation, effusion, or nodule identified. Cardiomediastinal silhouette is within normal limits. IMPRESSION: No acute cardiopulmonary abnormality. This document has been electronically signed by: Xu Prater MD on 11/17/2024 03:08:43
[2024-11-17 02:40] VITALS: BP 130/71; PULSE 104; RESP 18; TEMP 36.8; O2SAT 96; BMI 42.8
[2024-11-17 02:59] VITALS: O2SAT 96
[2024-11-17 03:07] LABS: IDNOW Serial# 6674DD1D; Strep A Nucleic Acid Negative (Negative)
--- NOTE | 2024-11-17 03:11 | ED_ITS ---
HPI - General Adult General Chief complaint: Upper Respiratory Symptoms Stated complaint: General Medical Time Seen by Provider: 11/17/24 02:41 Source: patient, RN notes reviewed and old records reviewed Mode of arrival: ambulatory Limitations: no limitations History of Present Illness ED Provider: Shana MCKEON narrative: 64-year-old female with a past medical history significant for asthma, obesity, GERD, who presents for evaluation of cough. Patient reports productive cough for the last 9 days patient reports that she went to urgent care. He is after symptom onset. Dated viral testing which was all negative and discharged her with benzonatate for cough. She reports that her symptoms have worsened. She reports cough productive of yellow sputum. She reports chills but no fevers. Denies any chest pain, abdominal pain pain Denies any recent travel denies any leg swelling Related Data Previous Rx's ?Medication ?Instructions ?Recorded benzonatate 100 mg capsule 100 mg PO BID-TID PRN cough #20 11/09/24 caps azithromycin 250 mg tablet See Rx Instructions PO .COMPLEX #6 11/17/24 tabs prednisone 20 mg tablet 40 mg (2 x 20 mg) PO DAILY #10 tabs 11/17/24 Allergies Allergy/AdvReac Type Severity Reaction Status Date / Time No Known Allergies Allergy Verified 11/17/24 02:42 Review of Systems Constitutional: Constitutional: Denies anorexia, Reports chills, Denies fever(s) and Denies headache(s) Eyes: Eyes: Denies blurry vision ENT: Denies vertigo, Denies dizziness and Denies headache(s) Cardiovascular: Cardiovascular: Denies chest pain and Reports dyspnea Respiratory: Respiratory: Reports change in phlegm color, Reports chest congestion, Reports cough, Denies hemoptysis, Reports dyspnea and Reports wheezing Gastrointestinal: Gastrointestinal: Denies abdominal pain, Denies nausea and Denies vomiting Musculoskeletal: Musculoskeletal: Denies back pain Integumentary/Breasts: Skin/Breast: Denies rash Neurologic: Denies vertigo, Denies dizziness and Denies headache(s) Psychiatric: Psychiatric: Denies anxiety Allergic/Immunologic: Allergic/Immunologic: Reports wheezing PMFSH Past Medical History Medical History COVID-19 virus infection Sinus infection Fibroids History of renal calculi Asthma Hypercholesterolemia Obesity GERD (gastroesophageal reflux disease) Allergic rhinitis Anxiety and depression Obstructive sleep apnea Vitamin D deficiency Osteoarthritis Surgical History H/O colonoscopy H/O right knee surgery History of section History of tubal ligation Family History Family History Father Cancer of kidney Hypertension Diabetes Mother Diabetes Sister Cancer of nasal cavities Sister Substance abuse Bipolar 1 disorder Social History Social History (Updated 10/14/24 @ 13:59 by Selvin Kiser MD) Household Members Other:: grandson Housing: House Alcohol intake: former Comment: quit 32 years old Patient Tobacco Use Status: Former Tobacco user Years Smoked: 2 stopped 32 years old Smoked in Last 30 Days: No e-Cigarette/Vaping Use: Never Used Second Hand Smoke Exposure: No Use of substances other than those prescribed or required for medical reasons: No Advance Directives: No Do you have a plan to hurt others: No Plan service: No Current occupational status: employed 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 Sexual orientation: Straight/Heterosexual Gender identity: Female Cognitive needs: No Hearing needs: No Vision needs: Yes Physical Exam ED Vital Signs: Vital Signs - 24 hr 11/17/24 02:40 11/17/24 02:59 Temperature 98.3 F Pulse Rate 104 H Respiratory Rate 18 Blood Pressure 130/71 Pulse Oximetry 96 96 Oxygen Delivery Method Room Air Room Air BMI result Body Mass Index 42.8 Const General: healthy appearing, comfortable, no acute distress, alert and awake Nutritional Appearance: well nourished Orientation/consciousness: patient oriented x3 HENMT Head: Yes normocephalic and Yes atraumatic Eyes Eyelids: Yes eyelids normal Conjunctivae: conjunctivae normal Sclerae: sclerae normal Corneas: corneas normal Pupils: Equal, round and reactive pupils present EOM: EOMs intact bilaterally Neck Neck: Yes full ROM Resp Effort & Inspection: normal respiratory effort, able to speak in complete sentences and not labored Auscultation: not clear to auscultation bilaterally and wheezes (faint expiratory wheeze throughout) Cardio Rate: regular rate Rhythm: regular rhythm Skin General skin exam: elasticity normal Neuro General: patient oriented x3 Cranial nerves: Yes Equal, round and reactive pupils present and Yes Bilaterally intact EOM present Cognition (Neuro): normal cognition Extrem Other: Moving all extremities well without any obvious deformities Medical Decision Making Medical Decision Making [facility] Narrative: 64-year-old female with past medical history as above presents for evaluation of cough and congestion. She is quite well appearing with stable vital signs. she does have faint wheezing on exam and reports having a nebulizer at home. Given that her symptoms have been present for over a week plan for chest x-ray. Repeat viral testing was performed Differential Diagnosis Differential Diagnoses: The differential diagnosis associated with the presentation includes upper respiratory infection Bronchitis Allergies Pneumonia Viral syndrome Lab Data Labs: Lab Results 11/17/24 Range/Units 02:55 Influenza Type A (PCR) NEGATIVE (Negative) Influenza Type B (PCR) NEGATIVE (Negative) RSV RNA Qual (PCR) NEGATIVE (Negative) SARS-CoV-2 RNA (RT-PCR) NEGATIVE (Negative) S. pyogenes GrpA CHAIM Negative (Negative) Independent Interpretation I performed an independent interpretation of an: Plain X-Ray Interpretation: no consolidations Discharge Plan Discharge Clinical Impression: Acute upper respiratory infection Patient Disposition: Home, Self-Care Instructions: Upper Respiratory Infection (ED) Additional Instructions: your chest x-ray was clear, no evidence of pneumonia. Your viral swabs were again negative. Take prednisone and azithromycin as prescribed continue to use your nebulizer as needed I recommend that you take a daily allergy medication this time of year Prescriptions: New azithromycin 250 mg tablet See Rx Instructions .ROUTE .COMPLEX Qty: 6 0RF Rx Instructions: For 250 mg dose pack: take 500 mg today (day 1), then 250 mg for 4 days (days 2-5) prednisone 20 mg tablet 40 mg PO DAILY Qty: 10 0RF No Action benzonatate 100 mg capsule 100 mg PO BID-TID PRN (Reason: cough) Qty: 20 0RF Print Language: [place]
[2024-11-17 03:37] LABS: Influenza A PCR NEGATIVE (Negative); Influenza B PCR NEGATIVE (Negative); Resp Syncy Virus RNA Qual PCR NEGATIVE (Negative); SARS COV2 PCR INHOUSE NEGATIVE (Negative)
--- NOTE | 2024-11-17 04:00 | PC.NURSE ---
Reviewed discharge instructions with pt. pt verbalized understanding, no sign of respiratory distress.
[2024-11-17 04:01] VITALS: BP 146/87; PULSE 72; RESP 16; TEMP 36.6; O2SAT 97
[2024-11-17 04:02] VITALS: BP 146/87; PULSE 72; RESP 20; TEMP 36.6; O2SAT 97
== END 2024-11-17 04:04 | disposition home or self-care (01) ==
PROVIDERS: Emergency Provider Emergency Medicine; PCP Internal Medicine
DX: J06.9 Acute upper respiratory infection, unspecified (principal); R05.9 Cough, unspecified; Z03.818 Encounter for observation for suspected exposure to other biological agents ruled out
CPT/HCPCS: 0241U; 71046; 87651; 99283; 99284

== ENCOUNTER → 2024-11-17 02:45 | Outpatient (BNV) | payer OTHER, SELFPAY | PROVIDERS: Emergency Provider Emergency Medicine; PCP Internal Medicine; Visit Provider Radiology Diagnostic Radiology | DX: R05.9 Cough, unspecified (principal) | CPT/HCPCS: 71046 ==

== ENCOUNTER 2024-12-29 15:21 | Outpatient (AMB) | payer OTHER, SELFPAY ==
--- NOTE | 2024-12-29 15:22 | A.OFFVIS_ITS ---
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 She is doing well with wire inserter concerns: outside itch for years, cortisone helps. Currently not sexually active . Denies any vaginal dryness or irritation. Attempting to eat a healthy diet with calcium and vitamin D and stays active with exercise. Last pap smear; 2023, negative. Last mammogram; 2024. Colonoscopy is UTD. Denies any family history of breast, ovarian or colon cancer. [facility] Medical History (Updated 12/29/24 @ 15:56 by Latrice Duran CNM) Lichen simplex chronicus COVID-19 virus infection Sinus infection Fibroids History of renal calculi Asthma Hypercholesterolemia Obesity GERD (gastroesophageal reflux disease) Allergic rhinitis Anxiety and depression Obstructive sleep apnea Vitamin D deficiency Osteoarthritis Surgical History H/O colonoscopy H/O right knee surgery History of section History of tubal ligation Family History Father Cancer of kidney Hypertension Diabetes Mother Diabetes Sister Cancer of nasal cavities Sister Substance abuse Bipolar 1 disorder Social History Household Members Other:: grandson Housing: House Alcohol intake: former Comment: quit 32 years old Patient Tobacco Use Status: Former Tobacco user Years Smoked: 2 stopped 32 years old e-Cigarette/Vaping Use: Never Used Second Hand Smoke Exposure: No service: No Current occupational status: employed 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 Sexual orientation: Straight/Heterosexual Gender identity: Female Cognitive needs: No Hearing needs: No Vision needs: Yes Female Reproductive History Menstrual control method: permanent sterilization Permanent Sterilization: BTL Total pregnancies: 5 Full term: 4 Number of Living Children: 4 Ab induced: 1 Date of last pap smear: 09/24/23 (neg pap and hpv) Date of Mammogram: 11/03/24 (Birad 1) Review of Systems Const All systems reviewed & are unremarkable except as noted in HPI and below Reports as per HPI Eyes Reports no additional complaints ENT Reports no additional complaints Card Reports no additional complaints Resp Reports no additional complaints GI Reports as per HPI and Reports no additional complaints Reports as per HPI Musc Reports no additional complaints Skin/Breast Reports as per HPI Neuro Reports no additional complaints Psych Reports no additional complaints Endo Reports no additional complaints Oscar/Lymph Reports no additional complaints Aller/Immun Reports no additional complaints Physical Exam Vital Signs: Last Vital Signs BP 122/80 12/29/24 15:33 BMI result Body Mass Index 43.2 Const General: cooperative, healthy appearing, no acute distress, well developed and alert Orientation/consciousness: patient oriented x3 HEENT Head: Yes normal to inspection Eyes General: appearance normal, both eyes and all related structures Neck Neck: Yes normal visual inspection Thyroid: Thyroid normal Chest Chest palpation & inspection: normal inspection of the chest and other (no puckering, dimpling, peau de orange, retraction, discharge, masses) Breast/axilla inspection: normal inspection of the breasts Breast/axilla palpation: normal palpation of the breasts Resp Effort & Inspection: normal respiratory effort GI Inspection: Yes normal to inspection Palpation (GI): Soft to palpation Rectal Exam - Female: deferred Other: No lesions, excoriations, erythema, mid lower mons edema with lichenification changes. General: Yes bladder normal to palpation External Female Exam: normal external appearance and normal appearance of the urethra Speculum Exam - Vagina: normal appearance of the vagina, normal palpation and normal vaginal discharge Speculum Exam - Cervix: normal appearance of the cervix and normal palpation Bimanual exam- vagina & uterus: normal bimanual exam, normal palpation, uterine size normal, bladder normal to palpation, normal palpation and non-tender Bimanual Exam- Adnexa, other: no masses Skin General skin exam: no rashes or lesions noted Rashes: no rashes Neuro General: patient oriented x3 Cognition (Neuro): normal cognition Extrem General: Yes normal to inspection Psych Attitude: cooperative Thought process: Normal thought process present Assessment & Plan Assessment & Plan (1) Lichen simplex chronicus: Code(s): L28.0 - Lichen simplex chronicus Category: Medical Plan: Counseled regarding skin findings chronic irritation, treatment for topical corticosteroid, use of cool compress for comfort measures, loose cotton clothing, avoid scratching, and rubbing use on sent it products, no shaving. Follow up in 2 months for skin check or sooner if needed. The patient expressed understanding and agreement with the plan of care. All of her questions and concerns were addressed to the best of my ability. Total time I personally spent on visit and management today: ?20 minutes. Time spent included review of pertinent office notes in the electronic health record; review of laboratory and imaging results; review of personal family medical history; performing physical exam; discussing diagnosis and plan of care with the patient; documenting the encounter in the EMR. (2) Encounter for well woman exam with routine gynecological exam: Code(s): Z01.419 - Encounter for gynecological examination (general) (routine) without abnormal findings Category: Medical Plan: Discussed: Current recommendations for pap smears per ASCCP guidelines. Breast awareness, periodic self breast exams and yearly mammogram. Maintain a healthy lifestyle, well balanced diet including Calcium 1,200 mg and Vitamin D 600 IU daily, and routine exercise. Contact the office with any postmenopausal bleeding. Patient verbalizes understanding and agrees to the plan of care. She was given opportunity to ask questions and all questions were answered to the best of my ability. RTO in 1 year for annual wire inserter exam. This note is constructed using voice recognition software. While every effort has been made to ensure accuracy, contour stitcher errors may have been included. Plan Discussed: Current recommendations for pap smears per ASCCP guidelines. Breast awareness, periodic self breast exams and yearly mammogram. Maintain a healthy lifestyle, well balanced diet including Calcium 1,200 mg and Vitamin D 600 IU daily, and routine exercise. Contact the office with any postmenopausal bleeding. Patient verbalizes understanding and agrees to the plan of care. She was given opportunity to ask questions and all questions were answered to the best of my ability. RTO in 1 year for annual wire inserter exam. This note is constructed using voice recognition software. While every effort has been made to ensure accuracy, contour stitcher errors may have been included. Medications: New betamethasone, augmented 0.05 % may use for up to 2 wks then every other day for 2 wks, then prn for two wks 1 appl topical BID 45 grams 1RF allergic reaction 7 days Coding Level of Care Code Est Pt Level 2 (77625) Est Pt Prev Care 40-64y(22002) Diagnoses Lichen simplex chronicus L28.0 Encounter for well woman exam with routine gynecological exam Z01.419
[2024-12-29 15:33] VITALS: BP 122/80; BMI 43.2
== END 2024-12-29 15:56 | disposition home or self-care (01) ==
LOC: HO.HWS 15:21
PROVIDERS: PCP Internal Medicine; Visit Provider Advanced Practice Midwife
DX: L28.0 Lichen simplex chronicus (principal); Z01.419 Encounter for gynecological examination (general) (routine) without abnormal findings
CPT/HCPCS: 99212; 99396; 99459

== ENCOUNTER → 2024-12-29 15:21 | Outpatient (BNVA) | payer OTHER, SELFPAY | PROVIDERS: PCP Internal Medicine; Visit Provider Advanced Practice Midwife ==

== ENCOUNTER 2025-02-25 16:36 | Emergency (ER) | payer OTHER, SELFPAY ==
[2025-02-25 16:41] VITALS: BP 148/74; PULSE 97; RESP 16; TEMP 36.6; O2SAT 93; BMI 43.4
--- NOTE | 2025-02-25 16:57 | ED_ITS ---
HPI - General Adult General Chief complaint: Allergic Reaction Stated complaint: allergic reaction/hives Time Seen by Provider: 02/25/25 16:57 Source: patient and family Limitations: no limitations History of Present Illness HPI narrative: 64-year-old female who has a history of GERD, asthma, presents for evaluation of an allergic reaction. Patient states that at approximately 4:30 p.m., she was eating pepperoni pizza with red pepper flakes and shortly after she began to feel itching and burning in her feet, arms and back. She noticed mild areas of redness. Patient denies any history of similar symptoms. She reports taking a shower and that her symptoms have mildly improved. She did not try any medication for this. She did not have any coughing, sore throat or difficulty breathing. She denies any history of food allergies. No fevers chills nausea or vomiting. No others with similar symptoms. She denies any new medications. No recent contacts or exposures. No other new foods. She does report drinking a mushroom tea but has been using this for over 1 month. She has 2 small dogs that are indoor dogs only. She denies any history of bedbugs or dust mites. Related Data Previous Rx's ?Medication ?Instructions ?Recorded betamethasone, augmented 0.05 % 1 appl topical BID all ergic 12/29/24 topical ointment reaction 7 days #45 grams Allergies Allergy/AdvReac Type Severity Reaction Status Date / Time No Known Allergies Allergy Verified 02/25/25 16:43 Review of Systems Constitutional: Constitutional: Denies chills and Denies fever(s) ENT: Denies nasal congestion, Denies nasal discharge and Denies sore throat Cardiovascular: Cardiovascular: Denies chest pain, Denies dyspnea and Denies dyspnea on exertion Respiratory: Respiratory: Denies cough, Denies dyspnea and Denies dyspnea on exertion Gastrointestinal: Gastrointestinal: Denies abdominal pain, Denies diarrhea, Denies nausea and Denies vomiting Integumentary/Breasts: Skin/Breast: Reports rash Psychiatric: Psychiatric: Denies depression PMFSH Past Medical History Medical History Lichen simplex chronicus COVID-19 virus infection Sinus infection Fibroids History of renal calculi Asthma Hypercholesterolemia Obesity GERD (gastroesophageal reflux disease) Allergic rhinitis Anxiety and depression Obstructive sleep apnea Vitamin D deficiency Osteoarthritis Surgical History H/O colonoscopy H/O right knee surgery History of section History of tubal ligation Family History Family History Father Cancer of kidney Hypertension Diabetes Mother Diabetes Sister Cancer of nasal cavities Sister Substance abuse Bipolar 1 disorder Social History Social History Household Members Other:: grandson Housing: House Alcohol intake: former Comment: quit 32 years old Patient Tobacco Use Status: Former Tobacco user Years Smoked: 2 stopped 32 years old Smoked in Last 30 Days: No e-Cigarette/Vaping Use: Never Used Second Hand Smoke Exposure: No Use of substances other than those prescribed or required for medical reasons: No Advance Directives: No Advance Directives Information Provided: No Do you have a plan to hurt others: No Plan Patient : No service: No Current occupational status: employed 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 No tongue elevation or edema. No stridor. Speaks full clear sentences. No drooling. Resp Other: Lung sounds clear throughout Cardio Rate: regular rate Rhythm: regular rhythm Skin Other: Faint erythema to the right forearm. Faint erythema with several scattered areas of urticaria to the mid and lower back. No vesicles or streaking. No redness or lesions on her feet. Medications Administered Discontinued Medications Generic Name Dose Route Start Last Admin Trade Name Freq PRN Reason Stop Dose Admin Diphenhydramine HCl 25 mg 02/25/25 17:07 02/25/25 17:16 Diphenhydramine Hcl 25 Mg Capsule PO 02/25/25 17:08 25 mg ONCE ONE Administration Medical Decision Making Medical Decision Making [facility] Narrative: 64-year-old female with possible allergic reaction. Currently the patient is hemodynamically stable. She did not take any medication and there is no airway compromise. At this time, the patient reports mild itching to her lower back. She is agreeable to a dose of oral diphenhydramine. Patient states she has Zyrtec at home that she will start taking tomorrow. No indication for epinephrine or steroids. Consideration for other sources such as insect bites or mites given the location of her rash. Lower suspicion food or medication related. No evidence of infection. Patient will continue to monitor her symptoms, follow up with PCP and allergy referral. Reviewed all discharge instructions. No further questions at this time. Differential Diagnosis Differential Diagnoses: The differential diagnosis associated with the presentation includes Angioedema Allergic reaction Urticaria Contact dermatitis Chronic Conditions Patient?s care impacted by: Hypertension Discharge Plan Discharge Clinical Impression: Allergic reaction, Urticaria Patient Disposition: Home, Self-Care Instructions: Urticaria (ED) Additional Instructions: As discussed, Zyrtec as directed. It is certainly possible that you reaction today was related to food. As a precaution you may want to avoid these foods. Wash your clothing and bedding in hot water, as a precaution Follow up with building tech referral Follow-up with your primary care provider. Call this week to schedule a follow- up appointment. Return to the emergency department if you have any worsening of symptoms, or any concerns. Get well soon! Prescriptions: No Action betamethasone, augmented 0.05 % ointment 1 appl topical BID 7 Days Qty: 45 1RF Rx Instructions: may use for up to 2 wks then every other day for 2 wks, then prn for two wks [facility]errals[facility] [Outside] Interventions: ED Discharge Assessment Last Done: 02/25/25 17:40 Discharge Date/Time: 02/25/25 17:41 Print Language: Samoan
[2025-02-25 17:25] VITALS: BP 133/74; PULSE 72; RESP 16; TEMP 36.4; O2SAT 97
[2025-02-25 17:40] VITALS: BP 133/74; PULSE 72; RESP 16; TEMP 36.4; O2SAT 97
== END 2025-02-25 17:41 | disposition home or self-care (01) ==
PROVIDERS: Emergency Provider Emergency Medicine; PCP Internal Medicine
DX: L50.0 Allergic urticaria (principal)
CPT/HCPCS: 99283; 99284